=== PATIENT | female | born 1990 | race Caucasian/White ===

== ENCOUNTER 2020-04-24 17:51 | Emergency (ER) | payer OTHER, SELFPAY ==
[2020-04-24 18:17] VITALS: BP 145/75; PULSE 99; RESP 18; TEMP 36.7; O2SAT 99; BMI 25.6
--- NOTE | 2020-04-24 18:28 | ED.FEMALEGU ---
HPI - Female Genitourinary General Chief complaint: Urogenital-Female Stated complaint: BACK PAIN Time Seen by Provider: 04/24/20 18:25 Source: patient Mode of arrival: ambulatory Limitations: no limitations History of Present Illness HPI Narrative: 29-year-old female here with complaints of dysuria, frequency, urgency, suprapubic discomfort and low back pain times 3-4 days. She tells me that she has vaginal discharge but this is unchanged from her normal. She tells me that she has slight vaginal discomfort but no itching, rashes, lesions. No fevers, chills, vomiting or diarrhea. She tells me that she is sexually active with 1 female partner. She does tell me that she had intercourse 1 day prior to when her symptoms began and this was vaginal and anal intercourse with a dildo. She tells me they do not use female condoms or any forms of contraception. She felt like she had a UTI and so yesterday she bought [id number] as though and this did give her some relief in her symptoms. MD elicited complaint: dysuria and back pain Onset (ago): day(s) Severity: mild Quality of pain: cramping Consistency: intermittent Vaginal discharge: white and creamy Vaginal bleeding: none Urinary symptoms: Dysuria, Urgency and Frequency Exacerbating factors: urination Treatment prior to arrival: none Sexual activity: Yes Patient : No Related Data Previous Rx's Medication Instructions Recorded doxycycline monohydrate 100 mg PO BID #14 tab 04/24/20 metronidazole [Flagyl] 500 mg PO Q12H #14 tab 04/24/20 phenazopyridine [Pyridium] 200 mg PO Q8H PRN #6 tab 04/24/20 Allergies Allergy/AdvReac Type Severity Reaction Status Date / Time apple [Apple] Allergy Severe SWELLING Unverified 12/18/19 16:18 cucumber Allergy Severe MOUTH Unverified 12/18/19 16:18 NUMBNESS soy [SOY] Allergy Severe ANAPHYLAXIS Unverified 12/18/19 16:18 lecithin, soy [LECITHIN, SOY] Allergy Unknown ANAPHYLAXIS Unverified 12/18/19 16:18 nut - unspecified [nut] Allergy Unknown RASH/ABDOMINAL Unverified 12/18/19 16:18 PAIN peach [PEACH] Allergy Unknown HIVES Unverified 12/18/19 16:18 raspberry [Raspberry] Allergy Unknown MOUTH Unverified 12/18/19 16:18 ITCHING strawberry [STRAWBERRY] Allergy Unknown ANAPHYLAXSI Unverified 12/18/19 16:18 S tacrolimus [From PROTOPIC] Allergy Unknown HIVES Unverified 12/18/19 16:18 tomato [TOMATO] Allergy Unknown ANAPHYLAXIS Unverified 12/18/19 16:18 environmental Allergy Unknown Uncoded 09/22/19 00:00 seasonal Allergy Unknown Uncoded 09/22/19 00:00 Review of Systems Review of Systems: Yes all other systems are reviewed and are negative Constitutional: Constitutional: Reports no additional constitutional complaints, Denies body ache(s), Denies chills, Denies fever(s), Denies headache(s) and Denies weakness Eyes: Eyes: Reports no additional eye complaints and Denies change in vision ENT: Reports system reviewed and no additional complaints, except as documented, Denies dizziness, Denies headache(s), Denies nasal congestion, Denies nasal discharge and Denies neck pain Cardiovascular: Cardiovascular: Reports no additional cardiovascular complaints, Denies chest pain, Denies leg edema and Denies dyspnea Respiratory: Respiratory: Reports no additional respiratory complaints, Denies cough and Denies dyspnea Gastrointestinal: Gastrointestinal: Reports no additional gastrointestinal complaints, Denies abdominal pain, Denies diarrhea, Denies nausea and Denies vomiting Genitourinary: Genitourinary: Reports no additional female genitourinary complaints, Reports dysuria, Denies urinary incontinence, Reports urinary urgency, Reports vaginal discharge, Denies vaginal odor and Denies vaginal pruritus Comments: +suprapubic pain Musculoskeletal: Musculoskeletal: Reports no additional musculoskeletal complaints, Reports back pain, Denies arthralgias, Denies joint swelling, Denies neck pain, Denies numbness and Denies tingling Integumentary/Breasts: Skin/Breast: Reports system reviewed and no additional complaints, except as docu and Denies rash Neurologic: Reports system reviewed and no additional complaints, except as documented, Denies Abnormal speech present, Denies dizziness, Denies headache(s), Denies numbness, Denies tingling and Denies weakness PMFSH Past Medical History Attestation statement: The following information was validated with the patient. Source: old records reviewed and nursing notes reviewed Medical History Asthma Social History Social History Advance Directives: No Advance Directives Information Provided: No Physical Exam Vital Signs: Vital Signs: Last Vital Signs Temp 98.0 F 04/24/20 18:17 Pulse 87 04/24/20 20:52 Resp 18 04/24/20 20:52 BP 116/78 04/24/20 20:52 Pulse Ox 99 04/24/20 20:52 Body Mass Index 25.6 Const: General: cooperative, healthy appearing, comfortable and no acute distress Orientation/consciousness: patient oriented x3 Limitations: no limitations HENMT: Head: Yes normal to inspection Ears: hearing grossly normal bilaterally General nose exam: Normal external nose present Face and sinus: Yes normal facial exam Mouth: Normal oral and palatal mucosa present Throat: Yes posterior oropharynx normal Eyes: General: appearance normal, both eyes and all related structures Pupils: Equal, round and reactive pupils present Neck: Neck: Yes normal visual inspection Chest: Chest palpation & inspection: normal inspection of the chest Resp: Effort & Inspection: normal respiratory effort Auscultation: clear to auscultation bilaterally Cardio: Rate: regular rate Rhythm: regular rhythm Peripheral pulses: Peripheral pulses 2+ throughout GI: Other: lower suprapubic discomfort Inspection: Yes normal to inspection Palpation (GI): Soft to palpation and nontender Auscultation: normal bowel sounds : 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 General: Yes Bimanual renal exam normal bilaterally External Female Exam: normal external appearance Speculum Exam - Vagina: normal appearance of the vagina and abnormal vaginal discharge (creamy, white, moderate amount ) Speculum Exam - Cervix: normal appearance of the cervix Bimanual exam- vagina & uterus: normal bimanual exam Bimanual Exam- Adnexa, other: normal adnexae and No adnexal tenderness Back/Spine/Pelvis: Thoracic/Lumbar Spine: thoracic and lumbar spine normal to inspection Skin: General skin exam: no rashes or lesions noted Neuro: General: patient oriented x3, no focal motor deficits and normal sensation to monofilament Cranial nerves: Yes Equal, round and reactive pupils present Cognition (Neuro): normal cognition Speech: No Abnormal speech present Gait exam (Neuro): Normal gait present Motor exam (neuro): 5/5 motor strength present throughout Extrem: General: Yes normal to inspection Course Course Course Narrative: 29 yo female here with suprapubic discomfort, low back pain and urinary symptoms x several days s/p sexual intercourse with her partner. UA and ur negative. Pelvic exam shows moderate vaginal discharge with no CMT or adnexal tenderness. Mild suprapubic discomfort with no unilateral pelvic pain. No CVAT. Sent CT NG, trichomonas prep, BV panel. Likely urethritis. Given ceftriaxone 500mg in ED. Pt refused IM and so nursing gave via PIV line. Will send home with flagyl BID, doxycyline BID. Reviewed worrisome signs/symptoms with patient and when to return to ED. comfortable with discharge home. MDM - Female Genitourinary Lab Data Labs: Lab Results 04/24/20 04/24/20 Range/Units 18:47 18:50 Urine Color YELLOW Urine Appearance CLEAR Urine pH 8.0 (5.0-8.0) Ur Specific [place] 1.015 (1.005-1.025) Urine Protein NEG (NEG-TRACE) MG/DL Urine Glucose (UA) NEG (NEG) MG/DL Urine Ketones NEG (NEG) MG/DL Urine Blood NEG (NEG) Urine Nitrite NEG (NEG) Ur Leukocyte Esterase NEG (NEG) Urine Test NEGATIVE (NEGATIVE) Discharge Plan Discharge Clinical Impression: Urethritis Patient Disposition: Home, Self-Care Instructions: Urinary Tract Infection in Women (ED) Additional Instructions: I will call you tomorrow if your results are positive We are treating your for a UTI presumptively No sex until you make sure your tests are negative for STDS Increase fluids Prescriptions: New phenazopyridine [Pyridium] 200 mg tablet 200 mg PO Q8H PRN (Reason: pain) Qty: 6 RF: 0 doxycycline monohydrate 100 mg tablet 100 mg PO BID Qty: 14 RF: 0 metronidazole [Flagyl] 500 mg tablet 500 mg PO Q12H Qty: 14 RF: 0 Referrals: Physician,None [Primary Care Provider] - 2 days Interventions: ED Discharge Assessment Last Done: 04/24/20 20:53 Discharge Date/Time: 04/24/20 20:54
[2020-04-24] MEDS: Ketorolac Tromethamine 60 MG/2 ML VIAL IM (18:43)
[2020-04-24 18:55] LABS: Glucose Urine UA NEG (NEG); Leukocyte Esterase Urine NEG (NEG); Nitrite Urine NEG (NEG); Specific Gravity - Urine 1.015 (1.005-1.025); Urine Blood NEG (NEG); Urine Ketones NEG (NEG); Urine Protein NEG (NEG-TRACE)
[2020-04-24 18:56] LABS: Appearance Urine CLEAR; Color Urine YELLOW
[2020-04-24 18:57] LABS: UPreg QC Valid YES; Urine Pregnancy NEGATIVE (NEGATIVE)
--- NOTE | 2020-04-24 19:26 | PC.NURSE ---
Pelvic exam completed by provider.
[2020-04-24 20:52] VITALS: BP 116/78; PULSE 87; RESP 18; O2SAT 99
[2020-04-25 11:07] LABS: CT PCR NOT DETECTED (Not Detect.); NG PCR NOT DETECTED (Not Detect.)
[2020-04-26 09:22] LABS: BV Int Neg Control Negative (Negative); BV Int Pos Control Positive (Positive)
== END 2020-04-24 20:54 | disposition home or self-care (01) ==
PROVIDERS: Nurse Practitioner Family; Emergency Provider Emergency Medicine Emergency Medical Services
DX: N34.2 Other urethritis (principal); M54.5 Low back pain; R30.0 Dysuria; Z79.899 Other long term (current) drug therapy
CPT/HCPCS: 81003; 81025; 87480; 87491; 87510; 87591; 87660; 96365; 96372; 99284; J0696; J1885

== ENCOUNTER 2020-05-04 12:40 | Outpatient (REF) | payer OTHER, SELFPAY | END 2020-05-04 12:41 | disposition home or self-care (01) | LOC: HO.LAB 12:40 | PROVIDERS: Visit Provider Internal Medicine | DX: Z20.822 Contact with and (suspected) exposure to COVID-19 (principal) | CPT/HCPCS: 36415; C9803; U0003; U0005 ==

== ENCOUNTER → 2020-12-07 08:17 | Outpatient (BNVA) | payer SELFPAY | DX: R76.11 Nonspecific reaction to tuberculin skin test without active tuberculosis (principal) ==

== ENCOUNTER 2023-01-03 17:55 | Outpatient (REF) | payer MEDICAID, SELFPAY ==
[2023-01-03 19:16] LABS: Influenza A PCR NEGATIVE (Negative); Influenza B PCR NEGATIVE (Negative); Resp Syncy Virus RNA Qual PCR NEGATIVE (Negative); SARS COV2 PCR INHOUSE NEGATIVE (Negative)
== END 2023-01-03 17:56 | disposition home or self-care (01) ==
LOC: HO.HHCLNP 17:55
PROVIDERS: Visit Provider Internal Medicine Geriatric Medicine
DX: J45.909 Unspecified asthma, uncomplicated (principal)
CPT/HCPCS: 0241U; 87070

== ENCOUNTER 2023-06-11 08:26 | Emergency (ER) | payer MEDICAID, SELFPAY ==
--- NOTE | ~2023-06-11 | XR_ITS ---
EXAMINATION: XR RIGHT ANKLE XR RIGHT FOOT CLINICAL INFORMATION: Pain after injury. COMPARISON: None available. TECHNIQUE: AP and oblique views of the right ankle. AP, lateral and oblique views of the right foot. FINDINGS: Right ankle: Ankle mortise is maintained. The talar dome is intact. No ankle joint effusion. Right foot: Alignment is anatomic. Joint spaces are maintained. No displaced fracture or dislocation. XR/XR ankle RT min 3V IMPRESSION: No acute abnormality.
--- NOTE | ~2023-06-11 | XR_ITS ---
EXAMINATION: XR RIGHT ANKLE XR RIGHT FOOT CLINICAL INFORMATION: Pain after injury. COMPARISON: None available. TECHNIQUE: AP and oblique views of the right ankle. AP, lateral and oblique views of the right foot. FINDINGS: Right ankle: Ankle mortise is maintained. The talar dome is intact. No ankle joint effusion. Right foot: Alignment is anatomic. Joint spaces are maintained. No displaced fracture or dislocation. XR/XR foot RT min 3V IMPRESSION: No acute abnormality.
[2023-06-11 09:05] VITALS: BP 117/68; PULSE 89; RESP 19; TEMP 36.5; O2SAT 98; BMI 30.1
--- NOTE | 2023-06-11 09:47 | ED.GENADULT ---
HPI - General Adult General Chief complaint: Extremity Injury, Lower Stated complaint: r foot inj Time Seen by Provider: 06/11/23 09:47 Source: patient Mode of arrival: wheelchair Limitations: no limitations History of Present Illness HPI narrative: Patient is a 32 year old assigned female at with no reported medical history presenting to the emergency department today with right sided foot pain. Patient states that on 06/09/2023 she was out and slipped on a dollar bill, inverting her right foot. Patient denies any head strike, loss of consciousness, dizziness, lightheadedness, abdominal pain, nausea, vomiting, fever, chills, blurry vision, double vision, loss of vision, chest pain, difficulty breathing, shortness of breath, back pain, night sweats, pain with urination, increased urinary frequency, increased urinary urgency, blood in her urine or stool, syncope or a near syncopal episode, bowel incontinence, bladder incontinence, bowel retention, bladder retention, or any other complaints at this time. Onset (ago): day(s) (2) Location: right and lower extremity Radiation: non-radiation Severity: mild Severity scale (1-10): 3 Quality: aching and dull Pain Consistency: constant Relieving factors: none Exacerbating factors: none Associated symptoms: denies other symptoms Treatments prior to arrival: none Related Data Previous Rx's Medication Instructions Recorded doxycycline monohydrate 100 mg 100 mg PO BID #14 tabs 04/24/20 tablet metronidazole 500 mg tablet 500 mg PO Q12H #14 tabs 04/24/20 (Flagyl) phenazopyridine 200 mg tablet 200 mg PO Q8H PRN pain 6 doses #6 04/24/20 (Pyridium) tabs Allergies Allergy/AdvReac Type Severity Reaction Status Date / Time apple [Apple] Allergy Severe SWELLING Unverified 12/18/19 16:18 cucumber Allergy Severe MOUTH Unverified 12/18/19 16:18 NUMBNESS soy [SOY] Allergy Severe ANAPHYLAXIS Unverified 12/18/19 16:18 lecithin, soy [LECITHIN, SOY] Allergy Unknown ANAPHYLAXIS Unverified 12/18/19 16:18 nut - unspecified [nut] Allergy Unknown RASH/ABDOMINAL Unverified 12/18/19 16:18 PAIN peach [PEACH] Allergy Unknown HIVES Unverified 12/18/19 16:18 raspberry [Raspberry] Allergy Unknown MOUTH Unverified 12/18/19 16:18 ITCHING strawberry [STRAWBERRY] Allergy Unknown ANAPHYLAXSI Unverified 12/18/19 16:18 S tacrolimus [From PROTOPIC] Allergy Unknown HIVES Unverified 12/18/19 16:18 tomato [TOMATO] Allergy Unknown ANAPHYLAXIS Unverified 12/18/19 16:18 environmental Allergy Unknown Uncoded 09/22/19 00:00 seasonal Allergy Unknown Uncoded 09/22/19 00:00 Review of Systems Constitutional: Constitutional: Reports no additional constitutional complaints, Denies chills, Denies fever(s) and Denies night sweats Eyes: Eyes: Reports no additional eye complaints, Denies blurry vision, Denies change in vision, Denies diplopia, Denies eye discharge, Denies loss of vision and Denies eye pain ENT: Denies dizziness Cardiovascular: Cardiovascular: Reports no additional cardiovascular complaints, Denies chest pain, Denies lightheadedness, Denies Loss of Consciousness and Denies dyspnea Respiratory: Respiratory: Reports no additional respiratory complaints and Denies dyspnea Gastrointestinal: Gastrointestinal: Reports no additional gastrointestinal complaints, Denies abdominal pain, Denies melena, Denies hematochezia, Denies change in bowel habits and Denies change in stool character Genitourinary: Genitourinary: Denies hematuria, Denies urinary frequency, Denies dysuria, Denies urinary incontinence, Denies urinary hesitancy and Denies urinary urgency Musculoskeletal: Musculoskeletal: Reports no additional musculoskeletal complaints, Denies numbness and Denies tingling Comments: right foot pain Neurologic: Denies dizziness, Denies loss of vision, Denies numbness and Denies tingling Psychiatric: Psychiatric: Reports no additional psychiatric complaints Endocrine: Endocrine: Reports no additional endocrine complaints Hematologic/Lymphatic: Hematologic/Lymphatic: Reports no additional hematologic/lymphatic complaints Allergic/Immunologic: Allergic/Immunologic: Reports no additional allergic/immunologic complaints PMFSH Past Medical History Attestation statement: The following information was validated with the patient. Source: old records reviewed and nursing notes reviewed Medical History Asthma Social History Social History Smoked in Last 30 Days: No Use of substances other than those prescribed or required for medical reasons: No Advance Directives: No Advance Directives Information Provided: Yes Patient : No Physical Exam ED Vital Signs: Vital Signs - 24 hr 06/11/23 09:05 06/11/23 10:44 Temperature 97.7 F 97.6 F Pulse Rate 89 69 Respiratory Rate 19 16 Blood Pressure 117/68 136/70 Pulse Oximetry 98 97 Oxygen Delivery Method Room Air Room Air BMI result Body Mass Index 30.1 Const General: cooperative, no acute distress, alert and awake Nutritional Appearance: well nourished Orientation/consciousness: patient oriented x3 Limitations: no limitations HENMT Head: Yes normal to inspection and Yes atraumatic Ears: hearing grossly normal bilaterally and external ears normal General nose exam: Normal external nose present, no nasal discharge noted and no epistaxis Face and sinus: Yes normal facial exam, No abrasion and No laceration Mouth: Normal oral and palatal mucosa present, no drooling and no muffled voice Eyes General: appearance normal, both eyes and all related structures Periorbital: periorbital findings normal Eyelids: Yes eyelids normal Conjunctivae: conjunctivae normal Pupils: Equal, round and reactive pupils present EOM: EOMs intact bilaterally Neck Neck: Yes normal visual inspection, Yes full ROM and Yes no lymphadenopathy Chest Chest palpation & inspection: normal inspection of the chest Resp Effort & Inspection: normal respiratory effort and able to speak in complete sentences GI Inspection: Yes normal to inspection Neuro General: patient oriented x3 and moves all extremities Cranial nerves: Yes Equal, round and reactive pupils present Cognition (Neuro): normal cognition Motor exam (neuro): 5/5 motor strength present throughout Sensory Exam: Normal double simultaneous stimulation for sensation Coordination: [id number] test normal Extrem Other: minimal bruising and swelling to the right lateral foot with point tenderness to palpation General: Yes full ROM and Yes capillary refill normal Psych Appearance: grossly normal Mental Status: mental status grossly normal Affect: normal affect Attitude: cooperative Thought process: Normal thought process present Thought content: Normal thought content present Insight: Good insight present (Psych) Medications Administered Discontinued Medications Generic Name Dose Route Start Last Admin Trade Name Freq PRN Reason Stop Dose Admin Acetaminophen 650 mg 06/11/23 10:54 06/11/23 11:09 Acetaminophen 325 Mg Tablet PO 06/11/23 10:55 650 mg ONCE ONE Administration Procedures Orthopedic Splinting/Casting Injury #1: Side: right Lower Extremity Injury Location: foot Lower Extremity Immobilizer: boot orthosis Other Orthopedic Equipment: crutches Medical Decision Making Medical Decision Making MDM Narrative: Patient is a 32 year old assigned female at with no reported medical history presenting to the emergency department today with right foot pain. Patient's physical exam was as noted in the physical exam portion of this note. Patient's right foot and ankle x-rays showed no acute process. Given the patient's clinical exam with point tenderness, will treat as an occult fracture and have her follow up with orthopedics. I explained my physical exam findings as well as all test results to the patient. I answered all questions asked by the patient. Patient's right foot was placed in a walking boot, without incident. Patient's PMS was intact prior to and after boot placement. Patient was given crutches with crutch instructions. I stressed the importance of the patient taking her medication as prescribed. I stressed the importance of the patient following up with her primary care provider and an orthopedic provider. I stressed the importance of the patient returning to the emergency department immediately if her symptoms were to worsen or if she were to develop any dizziness, shortness of breath, difficulty breathing, chest pain, blurry vision, loss of vision, nausea, vomiting, abdominal pain, fever, chills, back pain, or any other complaints. Patient verbalized agreement and understanding with this treatment plan and discharge. Differential Diagnosis Differential Diagnoses: The differential diagnosis associated with the presentation includes Right foot sprain Right foot strain Right foot fracture Admission/Observation Consideration of admission/observation: Escalation of care including admission/observation considered Patient would have been admitted to the hospital had her work up had any findings where hospital admission was appropriate and her clinical presentation warranted hospital admission. Independent Interpretation I performed an independent interpretation of an: Plain X-Ray Interpretation: My interpretation is in agreement with the radiologist's impression of these imaging studies. EXAMINATION: XR RIGHT ANKLE XR RIGHT FOOT CLINICAL INFORMATION: Pain after injury. COMPARISON: None available. TECHNIQUE: AP and oblique views of the right ankle. AP, lateral and oblique views of the right foot. FINDINGS: Right ankle: Ankle mortise is maintained. The talar dome is intact. No ankle joint effusion. Right foot: Alignment is anatomic. Joint spaces are maintained. No displaced fracture or dislocation. XR/XR foot RT min 3V IMPRESSION: No acute abnormality. Dictated By: Jn Stevenson MD Signed By: Electronically signed by Jn Stevenson MD 06/11/23 2710 Radiology Impression Discussion of test interpretation with radiology: I have reviewed the radiologist's reading. Discharge Plan Discharge Clinical Impression: Foot sprain Patient Disposition: Home, Self-Care Instructions: Foot Sprain (ED) Additional Instructions: Follow up with your primary care provider and an orthopedic provider. Wear the walking boot when ambulating. You may take the boot off for sleep and when stationary. Return to the emergency department immediately if your symptoms worsen or if you develop any dizziness, shortness of breath, difficulty breathing, chest pain, blurry vision, loss of vision, nausea, vomiting, abdominal pain, fever, chills, back pain, or any other complaints. Prescriptions: No Action phenazopyridine [Pyridium] 200 mg tablet 200 mg PO Q8H PRN (Reason: pain) Qty: 6 0RF doxycycline monohydrate 100 mg tablet 100 mg PO BID Qty: 14 0RF metronidazole [Flagyl] 500 mg tablet 500 mg PO Q12H Qty: 14 0RF Referrals: [facility] Family [facility] [Provider Group] (Call to establish and follow up with a primary care provider. If you already have a primary care provider, please follow up with them.) [facility] [Provider Group] (Call to establish and follow up with a primary care provider. If you already have a primary care provider, please follow up with them.) [facility] [Provider Group] (Call to establish and follow up with a primary care provider. If you already have a primary care provider, please follow up with them.) [facility] [Provider Group] (Call to establish and follow up with an orthopedic provider.) Stand Alone Forms: Work/School Release Interventions: ED Discharge Assessment Last Done: 06/11/23 11:12 Discharge Date/Time: 06/11/23 11:13 Print Language: Vietnamese
[2023-06-11 10:44] VITALS: BP 136/70; PULSE 69; RESP 16; TEMP 36.4; O2SAT 97
[2023-06-11] MEDS: Acetaminophen 325 MG TABLET 650 MG PO (11:09)
== END 2023-06-11 11:13 | disposition home or self-care (01) ==
PROVIDERS: Emergency Provider Emergency Medicine
DX: S93.601A Unspecified sprain of right foot, initial encounter (principal); X50.1XXA Overexertion from prolonged static or awkward postures, initial encounter; Y93.9 Activity, unspecified; Y92.9 Unspecified place or not applicable; Y99.9 Unspecified external cause status
CPT/HCPCS: 73610; 73630; 99283; 99284

== ENCOUNTER 2023-06-20 14:26 | Outpatient (AMB) | payer MEDICAID, SELFPAY ==
--- NOTE | 2023-06-20 14:36 | A.OFFVIS_ITS ---
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 Patient reports that she was bare foot when she slipped on a dollar bare twisitng her ankle and heard a crack. She had instant numbness and swelling, states a few hours later her pain presented. Presented to [facility] ED a couple of days later where xrays were taken and placed in a walking boot. Current pain level is 5 out of 10 with occasional numbness. States constant pain at the lateral aspect of ankle/foot and is tender to the touch. Allergies apple [Apple] Allergy (Severe, Unverified 06/20/23 14:51) SWELLING cucumber Allergy (Severe, Unverified 06/20/23 14:51) MOUTH NUMBNESS soy [SOY] Allergy (Severe, Unverified 06/20/23 14:51) ANAPHYLAXIS lecithin, soy [LECITHIN, SOY] Allergy (Unknown, Unverified 06/20/23 14:51) ANAPHYLAXIS nut - unspecified [nut] Allergy (Unknown, Unverified 06/20/23 14:51) RASH/ABDOMINAL PAIN peach [PEACH] Allergy (Unknown, Unverified 06/20/23 14:51) HIVES raspberry [Raspberry] Allergy (Unknown, Unverified 06/20/23 14:51) MOUTH ITCHING strawberry [STRAWBERRY] Allergy (Unknown, Unverified 06/20/23 14:51) ANAPHYLAXSIS tacrolimus [From PROTOPIC] Allergy (Unknown, Unverified 06/20/23 14:51) HIVES tomato [TOMATO] Allergy (Unknown, Unverified 06/20/23 14:51) ANAPHYLAXIS environmental Allergy (Unknown, Uncoded 06/20/23 14:51) Unknown seasonal Allergy (Unknown, Uncoded 06/20/23 14:51) Unknown HPI 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 She states at the time of the incident she heard a crack in the foot. She reports she had instant numbness and swelling and was seen at ED about 2 days later where x-rays were performed and she was placed in a walking boot. She currently states she has constant pain along the lateral aspect of his ankle which is tender to touch. She rates the pain as 5 on the scale of 0-10. 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 Review of Systems Const All systems reviewed & are unremarkable except as noted in HPI and below Physical Exam Vital Signs: BMI result Body Mass Index 30.0 Const General: cooperative, healthy appearing, comfortable, no acute distress, well developed and alert Orientation/consciousness: patient oriented x3 HEENT Head: Yes normal to inspection, Yes normocephalic and Yes atraumatic Eyes General: appearance normal, both eyes and all related structures Resp Effort & Inspection: normal respiratory effort and able to speak in complete sentences Cardio Rate: regular rate Peripheral pulses: Peripheral pulses 2+ throughout GI Palpation (GI): Soft to palpation Skin Lesions: no lesions Rashes: no rashes Neuro General: patient oriented x3 Extrem Other: Right foot: Normal to inspection. She has mild tenderness over the lateral aspect of foot with some associated swelling and bruising. NVI. Office Procedures Fracture Care Fracture Billing Code: Fracture Billing Code Results Reviewed Results Reviewed: xrays of the right foot obtained on 06/11/23 show a possible avulsion fragment along the cuboid bone Assessment & Plan Assessment & Plan (1) Cuboid fracture: Code(s): S92.213A - Displaced fracture of cuboid bone of unspecified foot, initial encounter for closed fracture Qualifiers: Encounter type: initial encounter Fracture type: closed Fracture alignment: displaced Laterality: right Qualified Code(s): S92.211A - Displaced fracture of cuboid bone of right foot, initial encounter for closed fracture Plan She will continue wearing her boot weight bearing as tolerated. She can remove the boot for hygiene and exercises. She will begin a course of physical therapy to work on gentle motion and ween out from the boot in 2-3 weeks as symptoms allow. She will follow-up as needed. Orders: Orders PT Evaluation and Treatment Today S92.253A - Displaced fracture of navicular [scaphoid] of unspecified foot, initial encounter for closed fracture Medications: New ibuprofen 800 mg PO Q8H 30 days PRN 90 tabs 3RF pain Patient Instructions: Scribed for Vanessa Bonilla PA-C, by Kirill Gutierrez medical affairs specialist, on 06/20/2023 at 2:30 PM EST. I, Vanessa Bonilla PA-C, have personally reviewed and agree with the information entered by the scribe. Coding Level of Care Code New Pt Level 3 (27082) Diagnoses Closed displaced fracture of cuboid of right foot, initial encounter S92.211A Encounter type: initial encounter Fracture type: closed Fracture alignment: displaced Laterality: right CPT Codes Fracture Care - Fracture Billing Code: Fracture Billing Code ([id number])
== END 2023-06-20 15:56 | disposition home or self-care (01) ==
PROVIDERS: Visit Provider Physician Assistant
DX: S92.211A Displaced fracture of cuboid bone of right foot, initial encounter for closed fracture (principal)
CPT/HCPCS: 99203

== ENCOUNTER → 2023-06-20 14:26 | Outpatient (BNVA) | payer MEDICAID, SELFPAY | PROVIDERS: Visit Provider Physician Assistant | DX: S92.211A Displaced fracture of cuboid bone of right foot, initial encounter for closed fracture (principal); X50.1XXA Overexertion from prolonged static or awkward postures, initial encounter; Y93.89 Activity, other specified; Y92.9 Unspecified place or not applicable; Y99.9 Unspecified external cause status | CPT/HCPCS: 99212 ==

== ENCOUNTER 2023-07-26 08:00 | Outpatient (RCR) | payer MEDICAID, SELFPAY ==
--- NOTE | 2023-07-05 10:58 | MHC.PT.EP ---
[facility] [place] [facility] [place] Office [place] Office [address] [place] [address] [phone] F: [phone] F: [phone] F: [phone] F: [phone] Physical Therapy Plan of Care Date of Evaluation: 07/05/23 Date of Surgery: Diagnosis: displaced fx of navicular (scaphoid) of unspecified foot, initial encounter for closed fx gentle ROM, strength Assessment: 32 y/o female referred to PT with displaced fx of navicular (scaphoid) of unspecified foot, initial encounter for closed fx, gentle ROM, strength. On 06/09/23, she was dancing at a club and while coming off the stage, she slipped on a dollar bill inverting her R ankle. She had instant swelling and zinging; foot felt disconnected. She went to the ED two days later and was given a walking boot WBAT and told she most likely had a Lis Franc fx. 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 Examination shows decreased R ankle AROM, decreased gastroc length B, decreased LE strength, and impaired gait pattern. Recommend PT 2x/week for 5 weeks to address impairments, implement HEP, and optimize functional mobility. Frequency and Duration: The patient will be seen 2x/week for 5 weeks Short Term Goals: 3 weeks I with HEP Production Intern Goals: 5 weeks I with HEP and self managmenet of sx Pt will be able to ambulate > 25 minutes with pain < 3/10 Pt will be able to ascend/ descend stairs with pain < 3/10 Treatment Plan: Modalities to reduce pain, spasms and effusion. Manual therapy to restore motion and function. Therapeutic exercise to improve strength and flexibility. Neuromuscular re-education for posture and balance. Therapeutic activities to return to functional activities of daily living. Electronically signed by: Please sign and return to therapist. Thank you for your referral.
--- NOTE | 2023-08-07 13:17 | MHC.PT.DC ---
[facility] [place] Office [place] Office [place] Office [address] [place] [address] [phone] F: [phone] F: [phone] F: [phone] F: [phone] Physical Therapy Discharge Report Diagnosis: displaced fx of navicular (scaphoid) of unspecified foot, initial encounter for closed fx gentle ROM, strength Date of Surgery: Date of Evaluation: 07/05/23 Date of Discharge: 08/07/23 Treatments to Date: 5 Cancellations to Date: 2 No Shows to Date: 3 Discharge Status: Visit Non-compliance Discharge Summary: Pt d/c for noncompliance with scheduling policy. Electronically signed by: Shy Gomes PT Please sign and return to therapist. Thank you for your referral.
== END 2023-08-07 13:17 | disposition home or self-care (01) ==
LOC: HO.PT 08:00
PROVIDERS: PCP Nurse Practitioner Family; Visit Provider Physician Assistant
DX: S92.251D Displaced fracture of navicular [scaphoid] of right foot, subsequent encounter for fracture with routine healing (principal)
CPT/HCPCS: 97110; 97140; 97161; 97530

== ENCOUNTER 2023-07-30 13:14 | Outpatient (REF) | payer MEDICAID, SELFPAY ==
[2023-07-30 16:37] LABS: Estimated Average Glucose 108 mg/dL; Hemoglobin A1c % 5.4 % (<6.0)
[2023-07-30 17:06] LABS: Alanine Aminotransferase 18 U/L (0-31); Albumin Level 4.3 g/dL (3.5-5.0); Alkaline Phosphatase 90 U/L (39-117); Anion Gap 12 (12-20); Aspartate Amino Transferase 17 U/L (5-31); Bilirubin Total 0.2 mg/dL (0.0-1.0); Blood Urea Nitrogen 14 mg/dL (9-16); Calcium 9.6 mg/dL (8.4-10.2); Carbon Dioxide 26 mmol/L (22-29); Chloride 103 mmol/L (96-108); Estimated Glomerular Filt Rate > 60; Glucose Random 98 mg/dL (60-115); Sodium 137 mmol/L (135-145); Total Protein 7.5 g/dL (6.5-8.0)
== END 2023-07-30 13:15 | disposition home or self-care (01) ==
LOC: HO.HHCL 13:14
PROVIDERS: Visit Provider Nurse Practitioner Family
DX: F43.23 Adjustment disorder with mixed anxiety and depressed mood (principal); Z83.3 Family history of diabetes mellitus
CPT/HCPCS: 36415; 80053; 83036

== ENCOUNTER 2024-05-06 20:06 | Emergency (ER) | payer MEDICAID, SELFPAY ==
--- NOTE | ~2024-05-06 | XR_ITS ---
CLINICAL HISTORY: cough, fever 2 view chest x-ray Comparison: Chest x-ray from 07/16/2019 Findings: No consolidation or effusion. Borderline low lung volumes. No pneumothorax. Cardiac silhouette and mediastinal contours are within limits of normal. No acute fracture. IMPRESSION: No consolidation. This document has been electronically signed by: Rios Rodriges MD on 05/06/2024 21:39:44
[2024-05-06 20:32] VITALS: BP 130/88; PULSE 104; RESP 24; TEMP 38; O2SAT 98; BMI 29.3
--- NOTE | 2024-05-06 20:36 | ED.GENADULT ---
HPI - General Adult General Chief complaint: General Medical Stated complaint: Fever/Vomiting Time Seen by Provider: 05/07/24 00:15 Source: patient, RN notes reviewed and old records reviewed Mode of arrival: ambulatory Limitations: no limitations History of Present Illness ED Provider: Jean Claude SALAZAR narrative: 33-year-old female presents for evaluation of flu-like symptoms pain She reports cough, congestion and shortness of breath for the last 3 days. She had associated fevers and chills as well as nausea and vomiting. Head denies any sick contacts pain She is diagnosed with asthma Related Data Home Medications ?Medication ?Instructions ?Recorded ?Confirmed albuterol sulfate 90 mcg/actuation 2 puff inhalation Q6H PRN wheezing 06/20/23 aerosol inhaler (Ventolin HFA) mometasone 100 mcg/actuation HFA 2 puff inhalation BID 06/20/23 aerosol inhaler (Asmanex HFA) montelukast 10 mg tablet 10 mg PO QAM 06/20/23 triamcinolone acetonide 0.1 % topical BID 06/20/23 topical ointment Previous Rx's ?Medication ?Instructions ?Recorded doxycycline monohydrate 100 mg 100 mg PO BID #14 tabs 04/24/20 tablet metronidazole 500 mg tablet 500 mg PO Q12H #14 tabs 04/24/20 (Flagyl) phenazopyridine 200 mg tablet 200 mg PO Q8H PRN pain 6 doses #6 04/24/20 (Pyridium) tabs ibuprofen 800 mg tablet 800 mg PO Q8H PRN pain 30 days #90 06/20/23 tabs prednisone 20 mg tablet 40 mg (2 x 20 mg) PO DAILY #10 tabs 05/07/24 Allergies Allergy/AdvReac Type Severity Reaction Status Date / Time apple [Apple] Allergy Severe SWELLING Verified 05/06/24 20:35 cucumber Allergy Severe MOUTH Verified 05/06/24 20:35 NUMBNESS soy [SOY] Allergy Severe ANAPHYLAXIS Verified 05/06/24 20:35 lecithin, soy [LECITHIN, SOY] Allergy Unknown ANAPHYLAXIS Verified 05/06/24 20:35 nut - unspecified [nut] Allergy Unknown RASH/ABDOMINAL Verified 05/06/24 20:35 PAIN peach [PEACH] Allergy Unknown HIVES Verified 05/06/24 20:35 raspberry [Raspberry] Allergy Unknown MOUTH Verified 05/06/24 20:35 ITCHING strawberry [STRAWBERRY] Allergy Unknown ANAPHYLAXSI Verified 05/06/24 20:35 S tacrolimus [From PROTOPIC] Allergy Unknown HIVES Verified 05/06/24 20:35 tomato [TOMATO] Allergy Unknown ANAPHYLAXIS Verified 05/06/24 20:35 environmental Allergy Unknown Unknown Uncoded 06/20/23 14:51 seasonal Allergy Unknown Unknown Uncoded 06/20/23 14:51 Review of Systems Constitutional: Constitutional: Reports body ache(s), Reports chills, Reports fever(s) and Reports headache(s) Eyes: Eyes: Denies photophobia ENT: Reports headache(s) and Denies sore throat Cardiovascular: Cardiovascular: Denies chest pain and Reports dyspnea Respiratory: Respiratory: Reports cough, Reports dyspnea and Reports wheezing Gastrointestinal: Gastrointestinal: Denies abdominal pain, Reports diarrhea, Reports nausea and Reports vomiting Musculoskeletal: Musculoskeletal: Denies back pain Integumentary/Breasts: Skin/Breast: Denies rash Neurologic: Reports headache(s) Allergic/Immunologic: Allergic/Immunologic: Reports wheezing PMFSH Past Medical History Medical History (Updated 05/07/24 @ 00:46 by Juan Silverio) Asthma Surgical History (Updated 06/20/23 @ 14:43 by LILIAN Rodriguez) History of tonsillectomy and adenoidectomy Social History Social History (Updated 06/20/23 @ 14:44 by LILIAN Rodriguez) Patient Tobacco Use Status: Never used Tobacco Advance Directives: No Advance Directives Information Provided: No Current occupational status: employed 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, 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 Physical Exam ED Vital Signs: Vital Signs - 24 hr 05/06/24 20:32 05/07/24 01:31 Temperature 100.4 F 100.4 F Pulse Rate 104 H 104 H Respiratory Rate 24 H 24 H Blood Pressure 130/88 130/88 Pulse Oximetry 98 98 Oxygen Delivery Method Room Air Room Air BMI result Body Mass Index 29.3 Const General: healthy appearing, comfortable, no acute distress, alert and awake Nutritional Appearance: well nourished Orientation/consciousness: patient oriented x3 HENMT Head: Yes normocephalic and Yes atraumatic Eyes Eyelids: Yes eyelids normal Conjunctivae: conjunctivae normal Sclerae: sclerae normal Corneas: corneas normal Pupils: Equal, round and reactive pupils present EOM: EOMs intact bilaterally Direct Ophthalmoscopy: No photophobia Neck Neck: Yes full ROM Resp Other: Faint expiratory wheezing in the bilateral bases Effort & Inspection: normal respiratory effort, able to speak in complete sentences and not labored GI Inspection: No distended Palpation (GI): Soft to palpation, not firm, nontender, no guarding and not rigid Skin General skin exam: elasticity normal Neuro General: patient oriented x3 Cranial nerves: Yes Equal, round and reactive pupils present and Yes Bilaterally intact EOM present Cognition (Neuro): normal cognition Extrem Other: Moving all extremities well without any obvious deformities Course Course Course Narrative: This is a Rapid Medical Examination (RME) performed by Carlos Bowie PA-C in triage. Full HPI, ROS, assessment and treatment plan per primary provider in the Main ED. 33 yo female hx asthma here w/ cough, congestion, dyspnea, N/V/D, fever, chills x3 days. +audible wheezes Plan: labs, viral/strep swabs, cxr, ed bronch protocol Medications Administered Discontinued Medications Generic Name Dose Route Start Last Admin Trade Name Freq PRN Reason Stop Dose Admin Albuterol/Ipratropium 3 ml 05/07/24 01:16 05/07/24 01:17 Albuterol/Iprat 2.5/0.5mg 3 Ml Ampul.Neb INHALE 05/07/24 01:17 3 ml ONCE ONE Administration Ibuprofen 600 mg 05/06/24 20:37 05/06/24 20:39 Ibuprofen 600 Mg Tablet PO 05/06/24 20:38 600 mg ONCE ONE Administration Medical Decision Making Medical Decision Making [facility] Narrative: 33-year-old female presents for evaluation of flu-like symptoms, she did test positive for influenza. She was outside the window for Tamiflu treatment. Her vital signs are stable but she is wheezy on exam. A DuoNeb was ordered. I did prescribe her prednisone. If she feels that she is improving she was not into start the prednisone however it does since she was a mild asthma exacerbation related to the influenza. Chest x-ray does not show any evidence of pneumonia. Labs are significant for a mild leukopenia which is likely consistent with viral syndrome. No significant chemistry abnormalities. The patient is not Differential Diagnosis Differential Diagnoses: The differential diagnosis associated with the presentation includes Asthma exacerbation Influenza Upper respiratory infection Pneumonia Lab Data [facility] Lab Attestation statement: I reviewed the patient's lab results. As above 05/06/24 21:20 05/06/24 21:20 Labs: Lab Results 05/06/24 Range/Units 21:20 WBC 3.0 L (4.8-10.8) X10*3/uL RBC 4.76 (4.20-5.50) X10*6/uL Hgb 13.3 (12.0-16.0) g/dl Hct 40.1 (37.0-47.0) % MCV 84.2 (80.0-98.0) fL MCH 27.9 (27.0-33.0) pg MCHC 33.2 (31.0-35.0) g/dl RDW 11.6 (11.0-16.0) % Plt Count 217 (160-400) X10*3/uL MPV 10.4 (9.4-12.3) fL Immature Gran % (Auto) 0.7 H (0.0-0.4) % Neut % (Auto) 55.2 (45-73) % Lymph % (Auto) 29.0 (20-40) % [place] % (Auto) 11.7 H (2-11) % Eos % (Auto) 2.7 (0-4) % Baso % (Auto) 0.7 (0-2) % Lymph # (Auto) 0.9 L (1.2-4.9) X10*3/uL [place] # (Auto) 0.4 (0.1-1.2) X10*3/uL Eos # (Auto) 0.1 (0.0-0.4) X10*3/uL Baso # (Auto) 0.0 (0.0-0.2) X10*3/uL Abs Immat Gran (auto) 0.02 (0.00-0.03) X10*3/uL Absolute Neuts (auto) 1.7 L (2.0-8.3) x10*3/uL Absolute Nucleated RBC 0.000 (0.0-0.012) X10*3/uL Nucleated RBC % (auto) 0.0 (0.0-0.2) /100WBC Sodium 141 (135-145) mmol/L Potassium 3.9 (3.3-5.1) mmol/L Chloride 101 (96-108) mmol/L Carbon Dioxide 26 (22-29) mmol/L Anion Gap 18 (12-20) BUN 9 (9-16) mg/dL Creatinine 0.97 (0.5-1.4) mg/dL Estim Creat Clear Calc 78.4 Estimated GFR > 60 Random Glucose 93 (60-115) mg/dL Calcium 9.0 D (8.4-10.2) mg/dL Magnesium 2.1 (1.6-2.6) mg/dL Total Bilirubin 0.2 (0.0-1.0) mg/dL AST 27 (5-31) U/L ALT 27 (0-31) U/L Alkaline Phosphatase 86 (39-117) U/L Total Protein 7.7 (6.5-8.0) g/dL Albumin 4.2 (3.5-5.0) g/dL Lipase 22 (8-78) U/L Beta HCG, Quant < 2 mIU/mL Influenza Type A (PCR) POSITIVE A (Negative) Influenza Type B (PCR) NEGATIVE (Negative) RSV RNA Qual (PCR) NEGATIVE (Negative) SARS-CoV-2 RNA (RT-PCR) NEGATIVE (Negative) S. pyogenes GrpA JULIO Negative (Negative) Radiology Impression Discussion of test interpretation with radiology: I have reviewed the radiologist's reading. Radiologist Impression: Findings: No consolidation or effusion. Borderline low lung volumes. No pneumothorax. Cardiac silhouette and mediastinal contours are within limits of normal. No acute fracture. IMPRESSION: No consolidation. This document has been electronically signed by: Rios Rodriges MD on 05/06/2024 21:39:44 Discharge Plan Discharge Clinical Impression: Influenza A, Asthma exacerbation Patient Disposition: Home, Self-Care Instructions: Asthma (ED), Influenza (ED) Additional Instructions: You tested positive for the flu. Your chest x-ray was clear, no evidence of pneumonia Your labs did not show any concerning abnormalities. The flu is likely triggering an asthma exacerbation. Use your inhalers as needed. You may start prednisone 40 mg daily for the next 5 days Follow-up with your primary doctor, return for new or worsening symptoms Prescriptions: New prednisone 20 mg tablet 40 mg PO DAILY Qty: 10 0RF No Action phenazopyridine [Pyridium] 200 mg tablet 200 mg PO Q8H PRN (Reason: pain) Qty: 6 0RF doxycycline monohydrate 100 mg tablet 100 mg PO BID Qty: 14 0RF metronidazole [Flagyl] 500 mg tablet 500 mg PO Q12H Qty: 14 0RF albuterol sulfate [Ventolin HFA] 90 mcg/actuation HFA aerosol inhaler 2 puff inhalation Q6H PRN (Reason: wheezing) Asmanex HFA 100 mcg/actuation HFA aerosol inhaler 2 puff inhalation BID montelukast 10 mg tablet 10 mg PO QAM triamcinolone acetonide 0.1 % ointment topical BID ibuprofen 800 mg tablet 800 mg PO Q8H PRN (Reason: pain) 30 Days Qty: 90 3RF Interventions: ED Discharge Assessment Last Done: 05/07/24 01:31 Discharge Date/Time: 05/07/24 01:37 Print Language: Lao
[2024-05-06] MEDS: Ibuprofen 600 MG TABLET PO (20:39)
--- OUTSIDE RECORDS SUMMARY | 2024-05-06 21:24 | XMS_ITS | Encounter Summary ---
Author Organization [facility] Address [address] [place] [id number] Care Team Providers Care Heel Seat Trimmer Name Role Phone Radha Sanchez Primary Care Provider [phone] Ayesha Ramachandran NP Primary Care Provider [phone] Encounter Details Date Type Department Care Team (Late st Contact Info) Description 04/10/2023 Orders Only [facility] [address] [place] [address] Radha Sanchez FNP [address] [place] [address] Irregular menses (Primary Dx) Social History Tobacco Use Types Packs/Day Years Used Date Smoking Tobacco: Never Smokeless Tobacco: Never Comments Unknown Sex and Gender Information Value Date Recorded Sex Assigned at Female 01/30/2022 10:22 AM EDT Legal Sex Female 10:22 AM EDT Gender Identity Female 01/30/2022 10:22 AM EDT Sexual Orientation Choose not to disclose 2021 10:22 AM EDT documented as of this encounter Plan of Treatment Upcoming Encounters Date Type Department Care Team (Late st Contact Info) Description 06/04/2024 10:00 AM EST Office Visit [facility] [address] [place] [address] Ayesha Ramachandran NP [address] [place] [address] documented as of this encounter Visit Diagnoses Diagnosis Irregular menses- Primary Irregular menstrual cycle documented in this encounter Care Teams Heel Seat Trimmer Relationship Specialty Start Date End Date Radha Sanchez FNP [address] [place] [address] PCP - General Family Medicine 12/08/22 12/03/23 Ayesha Ramachandran NP [address] [place] [address] PCP - General Family Medicine 12/04/23 documented as of this encounter
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
--- OUTSIDE RECORDS SUMMARY | 2024-05-06 21:24 | XMS_ITS | Encounter Summary ---
Author Organization [employer] Address [address] [place] [address] [address] [place] [address] Care Team Providers Care Med Care Manager Name Role Phone Radha SanchezP Primary Care Provider [phone] Ayesha Ramachandran NP Primary Care Provider [phone] Encounter Details Date Type Department Care Team ([facility] st Contact Info) Description 12/14/2022 Telephone [facility] [address] [place], [place] [phone] Radha Sanchez FNP [address] [place] [address] Social History Tobacco Use Types Packs/Day Years Used Date Smoking Tobacco: Never Assessed Comments Unknown Sex and Gender Information Value Date Recorded Sex Assigned at Female 01/30/2022 10:22 AM EDT Legal Sex Female 10:22 AM EDT Gender Identity Female 01/30/2022 10:22 AM EDT Sexual Orientation Choose not to disclose 2021 10:22 AM EDT documented as of this encounter Miscellaneous Notes * Telephone Encounter - Radha Ventura RN - 12/19/2022 11:28 AM EDT T/C to pt. For below message , No answer. LVM to call back on [phone]. * Telephone Encounter - Almita Mcgowan - 12/14/2022 8:43 AM EDT Tc from pt requesting to get a sleep studies done . documented in this encounter Plan of Treatment Upcoming Encounters Date Type Department Care Team (Late st Contact Info) Description 06/04/2024 10:00 AM EST Office Visit [facility] [address] [place] [address] Ayesha Ramachandran NP [address] [place], [place] [phone] documented as of this encounter Visit Diagnoses Not on filedocumented in this encounter Care Teams Med Care Manager Relationship Specialty Start Date End Date Radha Sanchez FNP [address] [place] [address] PCP - General Family Medicine 12/08/22 12/03/23 Ayesha Ramachandran NP [address] [place] [address] PCP - General Family Medicine 12/04/23 documented as of this encounter
--- OUTSIDE RECORDS SUMMARY | 2024-05-06 21:24 | XMS_ITS | Encounter Summary ---
Author Organization [employer] Address [address] [place] [address] [address] [place] [address] Care Team Providers Care Hot Box Operator Name Role Phone Ayesha Ramachandran SHAUN Primary Care Provider [phone] Encounter Details Date Type Department Care Team (Late st Contact Info) Description 04/25/2024 Orders Only [facility] [address] [place] [address] ProviderPierce MD Social History Tobacco Use Types Packs/Day Years Used Date Smoking Tobacco: Never Smokeless Tobacco: Never Alcohol Use Standard Drinks/Week Comments Yes 0 (1 standard drink = 0.6 oz pur e alcohol) occsionally Depression Answer Date Recorded Patient Health Questionnaire-9 Score 7 07/30/2023 Patient Health Questionnaire-9 Score 7 07/30/2023 Last PHQ-9: Questionnaire Data Not on file 0 07/30/2023 Housing Stability Answer Date Recorded What is your housing situation today? I have artimaciej singletary 07/30/[address] you [...] Description 06/04/2024 10:00 AM EST Office Visit [facility] [address] [place] [address] Ayesha Ramachandran NP [address] [place] [address] documented as of this encounter Procedures Procedure Name Priority Date/Time Associated Diagnosis Comments HM PAP/HPV Routine 08/21/2023 3:13 PM EDT documented in this encounter Results * HM PAP/HPV (08/21/2023 3:13 PM EDT) us Historical Provider HEALTH MAINTENANCE Final Result [facility] [address] [place], [place] [phone] documented in this encounter Visit Diagnoses Not on filedocumented in this encounter Additional Health Concerns Assessment Noted Time PHQ-9 Depression Total Score: 7 07/30/19 24 11:56 AM EDT documented as of this encounter Care Teams Hot Box Operator Relationship Specialty Start Date End Date Ayesha Ramachandran NP [address] [place] [address] PCP - General Family Medicine 12/04/23 documented as of this encounter
[2024-05-06 21:42] LABS: MANUAL DIFF FLAG NO
[2024-05-06 21:45] LABS: Basophils Percent Auto 0.7 % (0-2); Eosinophils Absolute Auto 0.1 X10*3/uL (0.0-0.4); Eosinophils Percent Auto 2.7 % (0-4); Hematocrit 40.1 % (37.0-47.0); Hemoglobin 13.3 g/dl (12.0-16.0); Imm Gran Abs Auto 0.02 X10*3/uL (0.00-0.03); Imm Gran Pct Auto 0.7 % (0.0-0.4); Lymphocytes Absolute Auto 0.9 X10*3/uL (1.2-4.9); Mean Corpuscular HGB Conc 33.2 g/dl (31.0-35.0); Mean Corpuscular Hemoglobin 27.9 pg (27.0-33.0); Mean Corpuscular Volume 84.2 fL (80.0-98.0); Mean Platelet Volume 10.4 fL (9.4-12.3); Monocytes Absolute Auto 0.4 X10*3/uL (0.1-1.2); Monocytes Percent Auto 11.7 % (2-11); Neutrophils Absolute Auto 1.7 x10*3/uL (2.0-8.3); Neutrophils Percent Auto 55.2 % (45-73); Platelet Count 217 X10*3/uL (160-400); Red Blood Count 4.76 X10*6/uL (4.20-5.50); Red Cell Distribution Width 11.6 % (11.0-16.0)
[2024-05-06 21:56] LABS: IDNOW Serial# 6674DD1D; Strep A Nucleic Acid Negative (Negative)
[2024-05-06 22:05] LABS: Alanine Aminotransferase 27 U/L (0-31); Albumin Level 4.2 g/dL (3.5-5.0); Alkaline Phosphatase 86 U/L (39-117); Anion Gap 18 (12-20); Aspartate Amino Transferase 27 U/L (5-31); Bilirubin Total 0.2 mg/dL (0.0-1.0); Blood Urea Nitrogen 9 mg/dL (9-16); Carbon Dioxide 26 mmol/L (22-29); Chloride 101 mmol/L (96-108); Creatinine Clr Calc Pharmacy 78.4; Estimated Glomerular Filt Rate > 60; Glucose Random 93 mg/dL (60-115); HCG Quantitative < 2 mIU/mL; Lipase 22 U/L (8-78); Magnesium 2.1 mg/dL (1.6-2.6); Potassium 3.9 mmol/L (3.3-5.1); Sodium 141 mmol/L (135-145); Total Protein 7.7 g/dL (6.5-8.0)
[2024-05-06 22:20] LABS: Influenza A PCR POSITIVE (Negative); Influenza B PCR NEGATIVE (Negative); Resp Syncy Virus RNA Qual PCR NEGATIVE (Negative); SARS COV2 PCR INHOUSE NEGATIVE (Negative)
[2024-05-07] MEDS: Albuterol/Iprat 2.5/0.5MG 3 ML AMPUL.NEB INHALE (01:17)
[2024-05-07 01:31] VITALS: BP 130/88; PULSE 104; RESP 24; TEMP 38; O2SAT 98
== END 2024-05-07 01:37 | disposition home or self-care (01) ==
PROVIDERS: Physician Assistant Medical; Emergency Provider Emergency Medicine; PCP Nurse Practitioner Family
DX: J10.1 Influenza due to other identified influenza virus with other respiratory manifestations (principal); J45.901 Unspecified asthma with (acute) exacerbation; R50.9 Fever, unspecified; R11.2 Nausea with vomiting, unspecified; R05.9 Cough, unspecified; R06.02 Shortness of breath; Z79.899 Other long term (current) drug therapy; Z03.818 Encounter for observation for suspected exposure to other biological agents ruled out
CPT/HCPCS: 0241U; 71046; 80053; 83690; 83735; 84702; 85025; 87651; 99283; 99284

== ENCOUNTER → 2024-05-06 20:35 | Outpatient (BNV) | payer MEDICAID, SELFPAY | PROVIDERS: PCP Nurse Practitioner Family; Visit Provider Radiology Neuroradiology | DX: R05.9 Cough, unspecified (principal); R50.9 Fever, unspecified | CPT/HCPCS: 71046 ==

== ENCOUNTER 2024-07-23 09:48 | Outpatient (REF) | payer MEDICAID, SELFPAY ==
--- OUTSIDE RECORDS SUMMARY | 2024-07-23 11:03 | XMS_ITS | Encounter Summary ---
Author Organization [employer] Address [address] [place] [address] [address] [address] Care Team Providers Care Fryer Operator Name Role Phone Ayesha Ramachnadran NP Primary Care Provider [phone] Reason for Visit * Reason Onset Date Comments Appointment Request 06/04/2024 Encounter Details Date Type Department Care Team ([facility] st Contact Info) Description 06/04/2024 Telephone [facility] [address] [place], [place] [phone] Ayesha Ramachandran NP [address] [place] [address] Appointment Request Social History Tobacco Use Types Packs/Day Years [...] encounter Miscellaneous Notes * Telephone Encounter - Jie Reed - 06/04/2024 12:17 PM EST Tc from pt requesting reschedule Transfer PT appt. with Madie. documented in this encounter Plan of Treatment Upcoming Encounters Date Type Department Care Team (Late st Contact Info) Description 09/01/2024 10:30 AM EDT Office Visit [facility] [address] [place] [address] Ayesha Ramachandran NP [address] [place] [address] documented as of this encounter Visit Diagnoses Not on filedocumented in this encounter Additional Health Concerns Assessment Noted Time PHQ-9 Depression Total Score: 7 07/30/19 24 11:56 AM EDT documented as of this encounter Care Teams Fryer Operator Relationship Specialty Start Date End Date Ayesha Ramachandran NP [address] [place] [address] PCP - General Family Medicine 12/04/23 documented as of this encounter
--- OUTSIDE RECORDS SUMMARY | 2024-07-23 11:03 | XMS_ITS | Encounter Summary ---
Author Organization [employer] Address [address] [place] [address] [address] [place] [address] Care Team Providers Care Take Out Waiter Name Role Phone Ayesha Ramachandran SHAUN Primary Care Provider [phone] Encounter Details Date Type Department Care Team (Latest Contact Info) Description 07/23/2024 Travel Social History Tobacco Use Types Packs/Day Years [...] Description 09/01/2024 10:30 AM EDT Office Visit [facility] [address] [place] [address] Ayesha Ramachandran NP [address] [place] [address] documented as of this encounter Visit Diagnoses Not on filedocumented in this encounter Additional Health Concerns Assessment Noted Time PHQ-9 Depression Total Score: 7 07/30/19 24 11:56 AM EDT documented as of this encounter Care Teams Take Out Waiter Relationship Specialty Start Date End Date Ayesha Ramachandran NP [address] [place] [address] PCP - General Family Medicine 12/04/23 documented as of this encounter
--- OUTSIDE RECORDS SUMMARY | 2024-07-23 11:03 | XMS_ITS | Clinical Summary ---
Author Organization [employer] Address [address] [place] [address] 7 [place] [address] Care Team Providers Care Wildlife And Game Protector Name Role Phone Ayesha Ramachandran SHAUN Primary Care Provider [phone] Allergies Active Allergy Reactions Criticality Noted Date Comments Apple Juice 06/02/2016 Glucose 06/12/2023 Lecithin 06/02/2016 Mangifera Indica 06/02/2016 Henderson (Diagnostic) 06/02/2016 Other 06/02/2016 Peanut-Containing Drug Products Hives 05/31 Prunus Persica 06/12/2023 Raspberry 06/02/2016 Soybean-Containing Drug Products Tacrolimus 09/15/2016 Tomato 06/02/2016 Medications * This document contains information received from the source organization and may not represent a complete record from that organization. montelukast (Singulair) 10 MG tabletIndicatio ns:Moderate persistent asthma with acute exacerbation Take 1 tablet (10 mg) by mouth in the morning. 30 tablet 5 05/16/19 24 Active triamcinolone (Kenalog) 0.1 % ointmentIndicat ions:Eczema, allergic Apply topically 2 times daily. 80 g 2 05/16/19 24 Active albuterol (2.5 MG/3ML) 0.083% nebulizer solutionIndicat ions:Moderate persistent asthma with acute exacerbation Take 3 mL (2.5 mg) by nebulization every 6 (six) hours if needed for wheezing. 75 mL 1 05/16/19 24 Active sertraline (Zoloft) 50 MG tablet Take 1 tablet (50 mg) by mouth Once per day. 30 tablet 07/30/19 24 Active fluticasone furoate (Arnuity Ellipta) 100 MCG/ACT inhaler Inhale 1 puff Once per day. Rinse mouth with water after use to reduce aftertaste and incidence of candidiasis. Do not swallow. 1 each 09/12/192024 Active albuterol 108 (90 Base) MCG/ACT inhalerIndicati ons:Moderate persistent asthma with acute exacerbation Inhale 2 puffs every 4 (four) hours if needed for wheezing. 18 g 2 04/03/19 25 Active Emollient (CeraVe Moisturizing) creamIndication s:Other eczema Apply 1 Units topically 2 times daily. 453 g 1 04/03/19 25 Active clobetasol (Temovate) 0.05 % creamIndication s:Other eczema Apply topically 2 times daily. Mix entire tube into Cerave. Do not apply on face 60 g 1 04/03/19 25 Active acetaminophen (Tylenol) 500 MG tablet Take 2 tablets by mouth in the morning and 2 tablets at noon and 2 tablets in the evening and 2 tablets before bedtime. 07/02/19 19 Active busPIRone (Buspar) 5 MG tablet Take 1 tablet by mouth every 12 (twelve) hours. 03/01/20 21 Active cholecalciferol (Vitamin D-3) 50 MCG (2000 UT) capsule Take 2,000 Units by mouth at bed time. 03/03/20 21 Active EPINEPHrine (Epipen) 0.3 MG/0.3ML injection syringe Inject 0.3 mL into the muscle. 06/17/19 22 Active fluticasone (Flovent HFA) 110 MCG/ACT inhaler Inhale 2 puffs every 12 (twelve) hours. 06/17/19 22 Active levonorgestrel- ethinyl estradiol (Levora 0.15/30, 28,) 0.15-30 MG-MCG tablet take 1 tablet by oral route every day, skip placebo pills and go to new pack 08/15/19 19 Active predniSONE (Deltasone) 20 MG tablet Take 2 tablets by mouth Once per day. 05/07/19 25 Active cetirizine (ZyrTEC) 10 MG tabletIndicatio ns:Other eczema TAKE 1 TABLET BY MOUTH EVERY DAY NEEDED 90 tablet 06/27/19 25 Active cetirizine (ZyrTEC) 10 MG tabletIndicatio ns:Other eczema Take 1 tablet (10 mg) by mouth Once per day. Prn. 30 tablet 2 04/04/19 25 2024 Discontinued Active Problems Problem Noted Date Diagnosed Date Irregular periods 07/23/2024 Pelvic pain 07/23/2024 PTSD (post-traumatic stress disorder) 07/30/2023 History of [...] Encounters Date Type Department Care Team Description 07/23/2024 9:20 AM EDT Office Visit [facility] [address] [place] [address] Irregular periods (Primary Dx); Pelvic pain 07/23/2024 Travel 06/26/2024 Refill [facility] [address] [place] [address] Ayesha Ramachandran NP Other eczema 06/13/2024 Population Health Risk Score Community Care [facility] ([facility]) Department [address] [place] [phone] Provider, Population Health Generic 06/04/2024 Telephone [facility] [address] [place] [address] Armando Chung [place] rescheduled appointment 06/04/2024 Telephone [facility] [address] [place] [address] Ayesha Ramachandran NP Appointment Request 05/29/2024 Telephone [facility] [address] [place] [address] Ayesha Ramachandran NP chartprep 05/28/2024 Patient Outreach [facility] [address] [place] [address] Ayesha Ramachandran NP Pre-visit Planning ([facility] unable to reach [facility] ) 04/25/2024 Orders Only [facility] [address] [place] [address] Provider, MD Pierce from Last 3 Months Immunizations Name Administration [...] 08 Moderna Covid-19 Vaccine 12+ 11/20/2020 Novel [id number], all formulations 03/12/2009 OPV, Trivalent 01/07/1998, 4,04/13/1993,02/09 TD (adult), 2 Lf tetanus [...] Sign Reading Time Taken Comments Blood Pressure 118/75 07/23/2024 9:08 AM EDT Pulse 89 07/23/2024 9:08 AM EDT Temperature 36.7 ??C (98 ??F) 07/23/2024 9:08 AM EDT Respiratory Rate 16 07/23/2024 9:08 AM EDT Oxygen Saturation 98% 07/23/2024 9:08 AM EDT Inhaled Oxygen Concentration - - Weight 72.6 kg (160 lb) 07/23/2024 9:08 AM EDT Height 157.5 cm (5' 2 ) 09/12/2023 3:15 PM EDT Body Mass Index 29.26 09/12/2023 3:15 PM EDT Plan of Treatment Upcoming Encounters Date Type Department Care Team (Late st Contact Info) Description 09/01/2024 10:30 AM EDT Office Visit [facility] [address] [place] [address] Ayesha Ramachandran NP [address] [place], [place] [phone] Health Maintenance Due Date Last Done Comments Alcohol/Substance Use Screening 2004 Family Planning (PISQ) 12/09/2007 Pneumococcal Vaccine: Pediatrics (0 to 5 Years) and At-Risk Patients (6 to 49) Years) (1 of 2 - PCV) 12/09/2011 COVID-19 Vaccine ( - season) 2023 12/21/2020, 11/20/2020 Influenza Vaccine (#1) 2023 , 01/01/2020, 01/25/2011, Additional history exists Depression Screening 07/29/2024 07/30/2023, 07/30/19 24 SDOH Screening 07/29/2024 07/30/2023 Tobacco Screening 04/04/2025 04/04/2024 Cervical Cancer Screening 08/20/2028 HPV/Cotest 08/20/2028 Pap Smear 08/20/2028 08/21/2023 DTaP/Tdap/Td Vaccines (10 - Td or [...] Procedure Name Priority Date/Time Associated Diagnosis Comments XR CHEST 2 VIEWS Routine 05/06/2024 9:39 PM EST HCG, TOTAL, QN Routine 05/06/2024 9:20 PM EST LIPASE Routine 05/06/2024 9:20 PM EST MAGNESIUM Routine 05/06/2024 9:20 PM EST COMPREHENSIVE METABOLIC PANEL Routine 05/06/2024 9:20 PM EST CBC WITH AUTO DIFFERENTIAL Routine 05/06/2024 9:20 PM EST SARS COV2/INFLUENZA A/B AND RSV RNA QL NAAT Routine 05/06/2024 9:20 PM EST STREP A NUCLEIC ACID Routine 05/06/2024 9:20 PM EST HM PAP/HPV Routine 08/21/2023 3:13 PM EDT ZZZ HISTORICAL HEPATITIS C AB W/REFL TO HCV RNA, QN, PCR Routine 03/01/2021 3:26 PM EST HIV 1/2 ANTIGEN/ANTIBODY, FOURTH GENERATION W/RFL Routine 03/01/2021 3:26 PM EST from Last 3 Months or Most Recently Relevant to Health Maintenance Results * XR Chest 2 Views (05/06/2024 9:39 PM EST) Anatomical Region Laterality Modality Chest Radiographic Deloris ging 05/06/2024 9:39 PM EST Narrative 05/06/2024 9:40 PM EST ? [facility] ?[address] ?[place] [address] ?XRay Report ? Signed ? Patient: Colon,Kenya Ellen ?MR#: [id number] ?? [id number] ? : 1990 ?Acct:[id number] ? Age/Sex: 33 / F ?ADM Date: 05/06/24 ? Loc: HO.ED ? Attending Dr: ? Ordering Physician: Debbie Bowie ?? Date of Service: 05/06/24 ?? Procedure(s): XR chest 2V ?? Accession Number(s): [id number] ? cc: Radha Sanchez NP; Debbie Bowie ? CLINICAL HISTORY: cough, fever ? 2 view chest x-ray ? Comparison: Chest x-ray from 07/16/2019 ? Findings: ?? No consolidation or effusion. Borderline low lung volumes. No pneumothorax. ?? Cardiac silhouette and mediastinal contours are within limits of normal. ?? No acute fracture. ? IMPRESSION: ?? No consolidation. ? This document has been electronically signed by: Rios Rodriges MD on ?? 05/06/2024 21:39:44 ? Dictated By: ?Rios Rodriges MD ? Signed By: ?<Electronically signed by Rios Rodriges MD in OV> ? 05/06/242139 ? DD/ 38 ? TD/TT: 05/06/242138 ? Technology Coach: ? Procedure Note Zayda Felix - 05/06/[address] [address] XRay Report Signed Patient: Kenya Saldivar#: [id number] : 1990Acct:[id number] Age/Sex: 33 / FADM Date: 05/06/24 Loc: HO.ED Attending Dr: Ordering Physician: Debbie Bowie Date of Service: 05/06/24 Procedure(s): XR chest 2V Accession Number(s): [id number] cc: Radha Sanchez SOFTWARE DEVELOPMENT ANALYST; Debbie Bowie CLINICAL HISTORY: cough, fever 2 view chest x-ray Comparison: Chest x-ray from 07/16/2019 Findings: No consolidation or effusion. Borderline low lung volumes. Nopneumothorax. Cardiac silhouette and mediastinal contours are within limits of normal. No acute fracture. IMPRESSION: No consolidation. This document has been electronically signed by: Rios Rodriges MD on 05/06/2024 21:39:44 Dictated By: Rios Rodriges MD Signed By: <Electronically signed by Rios Rodriges MD in OV> 05/06/242139 DD/ 38 TD/TT: 05/06/242138 Technology Coach: [facility] External Provider IMG XR PROCEDURES Edited Result - Final * Strep A Nucleic Acid (05/06/2024 9:20 PM EST) IDNOW SERIAL# [id number] [facility] Strep A Nucleic Acid Negative Negative [facility] Comment:All test results mus t be correlated with clinical findings.This test has not been evaluated for monitoring treatment ofinfection.Additional follow-up testing using the culture method isrequired if the result is negative and clinical symptomspersist, or in the event of an acute rheumatic feveroutbreak. 05/06/2024 9:20 PM EST 05/06/2024 9:40 PM EST Generic External Data Provider LAB MICROBIOLOGY - GENERAL ORDERABLES Final Result [facility] [address] [place] [phone] * (ABNORMAL) SARS-CoV-2 RNA, Influenza A/B, and RSV RNA, Ql NAAT (05/06/2024 9:20 PM EST) Influenza A PCR POSITIVE(A) Negative [facility] Influenza B PCR NEGATIVE Negative [facility] Resp Syncy Virus RNA Qual PCR NEGATIVE Negative [facility] SARS COV2 PCR NEGATIVE Negative [facility] Comment:All test results mus t be correlated with clinical findings.Negative results do not preclude SARS-CoV2, influenza Avirus, influenza B virus and/or RSV infectionand should not be used as the sole basis for treatment orother patient management decisions. Negative results must becombined with clinical observations, patient history, andepidemiological information.This test has not been evaluated for monitoring treatment ofinfection.This test has been authorized by the FDA under an EmergencyUse Authorization (EUA) for use by authorized laboratories.Testing performed on the [employer] GeneXpert utilizingreal-time RT-PCR.All SARS CoV2 and positive influenza A/B results arereported to [facility]. 05/06/2024 9:20 PM EST 05/06/2024 9:40 PM EST us Generic External Data Provider LAB MICROBIOLOGY - GENERAL ORDERABLES Final Result [facility] [address] [place] [phone] * (ABNORMAL) CBC auto differential (05/06/2024 9:20 PM EST) [facility] White Blood Count 3.0(L) 4.8 - 10.8 X10*3/uL [facility] Red Blood Count 4.76 4.20 - 5.50 X10*6/uL [facility] Hemoglobin 13.3 12.0 - 16.0 g/dl [facility] Hematocrit 40.1 37.0 - 47.0 % [facility] Mean Corpuscular Volume 84.2 80.0 - 98.0 fL [facility] Mean Corpuscular Hemoglobin 27.9 27.0 - 33.0 pg [facility] Mean Corpuscular HGB Conc 33.2 31.0 - 35.0 g/dl [facility] Red Cell Distribution Width 11.6 11.0 - 16.0 % [facility] Platelet Count 217 160 - 400 X10*3/uL [facility] Mean Platelet Volume 10.4 9.4 - 12.3 fL [facility] Neutrophils Percent Auto 55.2 45 - 73 % [facility] Imm Gran Pct Auto 0.7(H) 0.0 - 0.4 % [facility] Lymphocytes Percent Auto 29.0 20 - 40 % [facility] Monocytes Percent Auto 11.7(H) 2 - 11 % [facility] Eosinophils Percent Auto 2.7 0 - 4 % [facility] Basophils Percent Auto 0.7 0 - 2 % [facility] NRBC Pct Auto 0.0 0.0 - 0.2 /100WBC [facility] Neutrophils Absolute Auto 1.7(L) 2.0 - 8.3 x10*3/uL [facility] Imm Gran Abs Auto 0.02 0.00 - 0.03 X10*3/uL [facility] Lymphocytes Absolute Auto 0.9(L) 1.2 - 4.9 X10*3/uL [facility] Monocytes Absolute Auto 0.4 0.1 - 1.2 X10*3/uL [facility] Eosinophils Absolute Auto 0.1 0.0 - 0.4 X10*3/uL [facility] Basophils Absolute Auto 0.0 0.0 - 0.2 X10*3/uL [facility] NRBC Abs Auto 0.000 0.0 - 0.012 X10*3/uL [facility] 05/06/2024 9:20 PM EST 05/06/2024 9:40 PM EST us Generic External Data Provider LAB BLOOD ORDERAB LES Final Result [facility] [address] [place] [phone] * hCG, Total, Quantitative (05/06/2024 9:20 PM EST) Pathologist [facility] HCG Quantitative <2 mIU/mL [facility] Comment:Weeks post LMP Appro ximate hCG(Last Menstrual Period) Range (mIU/ml)3 - 4 weeks 9 - 1304 - 5 weeks 75 - 2,6005 - 6 weeks 850 - 20,8006 - 7 weeks 4000 - 100,2007 - 12 weeks 11,500 - 289,13935 - 16 weeks 18,300 - 137,54312 - 29 weeks (2nd trimester) 1,400 - 53,63923 - 41 weeks (3rd trimester) 940 - 60,000The Gomez B- hCG assay is used for the early detection ofpregnancy; it cannot be used to diagnose any conditionunrelated to . If a B-hCG level is not supportedby the clinical evidence, results should be confirmed by analternative method (qualitative urine hCG, for example). 05/06/2024 9:20 PM EST 05/06/2024 9:40 PM EST Generic External Data Provider LAB BLOOD ORDERAB LES Final Result Performing Organization Address City/[facility]/ZIP Co de Phone Number [facility] [address] [place] [phone] * Magnesium (05/06/2024 9:20 PM EST) Pathologist [facility] Magnesium 2.1 1.6 - 2.6 mg/dL [facility] 05/06/2024 9:20 PM EST 05/06/2024 9:40 PM EST Generic External Data Provider LAB BLOOD ORDERAB LES Final Result Performing Organization Address [facility] Co de Phone Number [facility] [address] [place] [phone] * Lipase (05/06/2024 9:20 PM EST) Lipase 22 8 - 78 U/L [facility] 05/06/2024 9:20 PM EST 05/06/2024 9:40 PM EST us Generic External Data Provider LAB BLOOD ORDERAB LES Final Result [facility] [address] [place] [phone] * Comprehensive Metabolic Panel (05/06/2024 9:20 PM EST) Sodium 141 135 - 145 mmol/L [facility] Potassium 3.9 3.3 - 5.1 mmol/L [facility] Chloride 101 96 - 108 mmol/L [facility] Carbon Dioxide 26 22 - 29 mmol/L [facility] Anion Gap 18 12 - 20 [facility] Urea Nitrogen (BUN) 9 9 - 16 mg/dL [facility] Creatinine, Serum 0.97 0.5 - 1.4 mg/dL [facility] Creatinine Clr Calc Pharmacy 78.4 [facility] Comment:Provided height and weight: 157.48 cm,72.575 kg.eGFR (calculated from the MDRD study equation) and eCrCl(calculated from the Cockcroft-Gault equation) are based ondifferent parameters and may not yield comparable results.If eCrCl result is absurd, please check patient'sheight/weight. Estimated Glomerular Filt Rate >60 [facility] Comment:Chronic Kidney Disea se: Estimated GFR < 60 mL/min/1.97y0Mycbwk Kidney Disease: Estimated GFR < 15 mL/min/1.73m2 Glucose 93 60 - 115 mg/dL [facility] Calcium 9.0 8.4 - 10.2 mg/dL [facility] Bilirubin, Total 0.2 0.0 - 1.0 mg/dL [facility] Aspartate Amino Transferase 27 5 - 31 U/L [facility] Alanine Aminotransferase 27 0 - 31 U/L [facility] Total Protein 7.7 6.5 - 8.0 g/dL [facility] Albumin Level 4.2 3.5 - 5.0 g/dL [facility] Alkaline Phosphatase 86 39 - 117 U/L [facility] 05/06/2024 9:20 PM EST 05/06/2024 9:40 PM EST Generic External Data Provider LAB BLOOD ORDERAB LES Final Result Performing Organization Address [facility] Co de Phone Number [facility] [address] [place] [phone] * HM PAP/HPV (08/21/2023 3:13 PM EDT) Historical Provider MD HEALTH MAINTENANCE Final Result Performing Organization Address [facility] Co de Phone Number [facility] [address] [place] [address] * HEPATITIS C AB W/REFL TO HCV RNA, QN, PCR (03/01/2021 3:26 PM EST) HEPATITIS C ANTIBODY NON-REACT ERIK NON-REACT ERIK [facility] INDEX 0.03 <1.00 [facility] Comment: ?? HCV antibody was non-reactive. There is no laboratory ?? evidence of HCV infection. ?? In most cases, no further action is required. However, if recent HCV exposure is suspected, a test for HCV RNA (test code 07203) is suggested. ?? For additional information please refer to http://education.Medifocus/faq/CLH47y3 (This link is being provided for informational/ educational purposes only.) ?? 03/01/2021 3:26 PM EST Arti Dewtit FIELD CONTROL INSPECTOR HISTORICAL/NON ORDERABLE LABS Final Result Performing Organization Address [facility] Co de Phone Number [facility] [address] * HIV 1/2 ANTIGEN/ANTIBODY,FOURTH GENERATION W/RFL (03/01/2021 3:26 PM EST) HIV-1/2 ANTIGEN AND ANTIBODIES, 4TH GENERATION W/ REFLEX NON-REACT ERIK NON-REACT ERIK [facility] Comment: HIV-1 antigen and HIV-1/HIV-2 [...] ? For additional information please refer to http://education.Medifocus/faq/JFV995 (This link is being provided for informational/ educational purposes only.) ? The performance of this assay has not been clinically validated in patients less than 2 years old. ?? 03/01/2021 3:26 PM EST us Arti Dewitt FIELD CONTROL INSPECTOR LAB BLOOD ORDERABLES Final Res ult [facility] [address] from Last 3 Months or Most Recently Relevant to Health Maintenance Insurance [place] [address] C3 HSN FULL Care Teams Wildlife And Game Protector Relationship Specialty Start Date End Date Ayesha Ramachandran NP [address] [place] [phone] PCP - General Family Medicine 12/04/23
--- OUTSIDE RECORDS SUMMARY | 2024-07-23 11:03 | XMS_ITS | Encounter Summary ---
Author Organization [employer] Address [address] [place] [address] 7[address] [place] [address] Care Team Providers Care Fraternity House Cook Name Role Phone Ayesha Ramachandran SHAUN Primary Care Provider [phone] Encounter Details Date Type Department Care Team (Late st Contact Info) Description 04/25/2024 Orders Only [facility] MED[facility] [address] [place] [address] ProviderPierce MD Social History Tobacco Use Types [...] Description 09/01/2024 10:30 AM EDT Office Visit [facility] [address] [place] [address] Ayesha Ramachandran NP [address] [place], [place] [phone] documented as of this encounter Procedures Procedure Name Priority Date/Time Associated Diagnosis Comments XR CHEST 2 VIEWS Routine 05/06/2024 9:39 PM EST STREP A NUCLEIC ACID Routine 05/06/2024 9:20 PM EST SARS COV2/INFLUENZA A/B AND RSV RNA QL NAAT Routine 05/06/2024 9:20 PM EST CBC WITH AUTO DIFFERENTIAL Routine 05/06/2024 9:20 PM EST HCG, TOTAL, QN Routine 05/06/2024 9:20 PM EST MAGNESIUM Routine 05/06/2024 9:20 PM EST LIPASE Routine 05/06/2024 9:20 PM EST COMPREHENSIVE METABOLIC PANEL Routine 05/06/2024 9:20 PM EST HM PAP/HPV Routine 08/21/2023 3:13 PM EDT documented in this encounter Results * XR Chest 2 Views (05/06/2024 9:39 PM EST) Anatomical Region Laterality Modality Chest Radiographic Deloris ging 05/06/2024 9:3 9 PM EST Narrative 05/06/2024 9:40 PM EST ? [facility] ?[address] ?[place], [place] [address] ?XRay Report ? Signed ? Patient: Colon,Kenya Ellen ?MR#: [id number] ?? [id number] ? : 1990 ?Acct:[id number] ? Age/Sex: 33 / F ?ADM Date: 05/06/24 ? Loc: HO.ED ? Attending Dr: ? Ordering Physician: Debbie Bowie ?? Date of Service: 05/06/24 ?? Procedure(s): XR chest 2V ?? Accession Number(s): [id number] ? cc: Radha Sanchez NP; Debbie Bowie [...] ? DD/ 38 ? TD/TT: 05/06/242138 ? Formula Checker: ? Procedure Note Zayda Felix - 05/06/[address] [address] XRay Report Signed Patient: Kenya Saldivar#: [id number] : 1990Acct:[id number] Age/Sex: 33 FADM Date: 05/06/24 Loc: HO.ED Attending Dr: Ordering Physician: Debbie Bowie Date of Service: 05/06/24 Procedure(s): XR chest 2V Accession Number(s): [id number] cc: Radha Sanchez TERRY CLOTH CUTTER HAND; Debbie Bowie CLINICAL HISTORY: cough, fever 2 [...] in OV> 05/06/242139 DD/ 38 TD/TT: 05/06/242138 Formula Checker: [facility] External Provider IMG XR PROCEDURES Edited Result - Final * (ABNORMAL) SARS-CoV-2 RNA, Influenza A/B, and RSV RNA, Ql NAAT (05/06/2024 9:20 PM EST) Influenza A PCR POSITIVE(A) Negative [facility] Influenza B PCR NEGATIVE Negative [facility] Resp Syncy Virus RNA Qual PCR NEGATIVE Negative [facility] SARS COV2 PCR NEGATIVE Negative [facility] Comment:All test results mus t be [...] use by authorized laboratories.Testing performed on the Dovo GeneXpert utilizingreal-time RT-PCR.All SARS CoV2 and positive influenza A/B results arereported to [facility]. 05/06/2024 9:20 PM EST 05/06/2024 9:40 PM EST Generic External Data Provider LAB MICROBIOLOGY - GENERAL ORDERABLES Final Result [facility] [address] [place] [address] [phone] * hCG, Total, Quantitative (05/06/2024 9:20 PM EST) Pathologist [facility] HCG Quantitative <2 mIU/mL [facility] Comment:Weeks post LMP Appro ximate hCG(Last Menstrual Period) Range (mIU/ml)3 - 4 weeks 9 - 1304 - 5 weeks 75 - 2,6005 - 6 weeks 850 - 20,8006 - 7 weeks 4000 - 100,2007 - 12 weeks 11,500 - 289,16188 - 16 weeks 18,300 - 137,06904 - 29 weeks (2nd trimester) 1,400 - 53,07327 - 41 weeks (3rd trimester) 940 - [...] ORDERAB LES Final Result Performing Organization Address [facility] Co de Phone Number [facility] [address] [place] [phone] * Lipase (05/06/2024 9:20 PM EST) [facility] Lipase 22 8 - 78 U/L [facility] 05/06/2024 9:20 PM EST 05/06/2024 9:40 PM EST us Generic External Data Provider LAB BLOOD ORDERAB LES Final Result Performing Organization Address [facility] Co de Phone Number [facility] [address] [place] [phone] * Magnesium (05/06/2024 9:20 PM EST) Magnesium 2.1 1.6 - 2.6 mg/dL [facility] 05/06/2024 9:20 PM EST 05/06/2024 9:40 PM EST us Generic External Data Provider LAB BLOOD ORDERAB LES Final Result [facility] [address] [place] [address] [phone] * Comprehensive Metabolic Panel (05/06/2024 9:20 PM EST) Sodium 141 135 - 145 mmol/L [facility] Potassium 3.9 3.3 - 5.1 mmol/L [facility] Chloride 101 96 - 108 mmol/L [facility] Carbon Dioxide 26 22 - 29 mmol/L [facility] Anion Gap 18 12 - 20 [facility] Urea Nitrogen (BUN) 9 9 - 16 mg/dL [facility] Creatinine, Serum 0.97 0.5 - 1.4 mg/dL [facility] Creatinine Clr Calc Pharmacy 78.4 [facility] Comment:Provided height and weight: 157.48 cm,72.575 kg.eGFR (calculated from the MDRD study equation) and eCrCl(calculated from the Cockcroft-Gault equation) are based ondifferent parameters and may not yield comparable results.If eCrCl result is absurd, please check patient'sheight/weight. Estimated Glomerular Filt Rate >60 [facility] Comment:Chronic Kidney Disea se: Estimated GFR < 60 mL/min/1.37m9Ttmfau Kidney Disease: Estimated GFR < 15 mL/min/1.73m2 Glucose 93 60 - 115 mg/dL [facility] Calcium 9.0 8.4 - 10.2 mg/dL [facility] Bilirubin, Total 0.2 0.0 - 1.0 mg/dL [facility] Aspartate Amino Transferase 27 5 - 31 U/L [facility] Alanine Aminotransferase 27 0 - 31 U/L [facility] Total Protein 7.7 6.5 - 8.0 g/dL [facility] Albumin Level 4.2 3.5 - 5.0 g/dL [facility] Alkaline Phosphatase 86 39 - 117 U/L [facility] 05/06/2024 9:20 PM EST 05/06/2024 9:40 PM EST Generic External Data Provider LAB BLOOD ORDERAB LES Final Result Performing Organization Address [facility] de Phone Number [facility] [address] [place] [address] [phone] * Strep A Nucleic Acid (05/06/2024 9:20 PM EST) IDNOW SERIAL# [id number] [facility] Strep A Nucleic Acid Negative Negative [facility] Comment:All test results mus t [...] LAB MICROBIOLOGY - GENERAL ORDERABLES Final Result Performing Organization Address [facility] de Phone Number [facility] [address] [place] [phone] * (ABNORMAL) CBC auto differential (05/06/2024 9:20 PM EST) White Blood Count 3.0(L) 4.8 - 10.8 X10*3/uL [facility] Red Blood Count 4.76 4.20 - 5.50 X10*6/uL [facility] Hemoglobin 13.3 12.0 - 16.0 g/dl [facility] Hematocrit 40.1 37.0 - 47.0 % [facility] Mean Corpuscular Volume 84.2 80.0 - 98.0 fL [facility] Mean Corpuscular Hemoglobin 27.9 27.0 - 33.0 pg [facility] Mean Corpuscular HGB Conc 33.2 31.0 - 35.0 g/dl [facility] Red Cell Distribution Width 11.6 11.0 - 16.0 % [facility] Platelet Count 217 160 - 400 X10*3/uL [facility] Mean Platelet Volume 10.4 9.4 - 12.3 fL [facility] Neutrophils Percent Auto 55.2 45 - 73 % [facility] Imm Gran Pct Auto 0.7(H) 0.0 - 0.4 % [facility] Lymphocytes Percent Auto 29.0 20 - 40 % [facility] Monocytes Percent Auto 11.7(H) 2 - 11 % [facility] Eosinophils Percent Auto 2.7 0 - 4 % [facility] Basophils Percent Auto 0.7 0 - 2 % [facility] NRBC Pct Auto 0.0 0.0 - 0.2 /100WBC [facility] Neutrophils Absolute Auto 1.7(L) 2.0 - 8.3 x10*3/uL [facility] Imm Gran Abs Auto 0.02 0.00 - 0.03 X10*3/uL [facility] Lymphocytes Absolute Auto 0.9(L) 1.2 - 4.9 X10*3/uL [facility] Monocytes Absolute Auto 0.4 0.1 - 1.2 X10*3/uL [facility] Eosinophils Absolute Auto 0.1 0.0 - 0.4 X10*3/uL [facility] Basophils Absolute Auto 0.0 0.0 - 0.2 X10*3/uL [facility] NRBC Abs Auto 0.000 0.0 - 0.012 X10*3/uL [facility] 05/06/2024 9:20 PM EST 05/06/2024 9:40 PM EST us Generic External Data Provider LAB BLOOD ORDERAB LES Final Result Performing Organization Address City/State/[facility] Co de Phone Number [facility] [address] [place] [address] [phone] * HM PAP/HPV (08/21/2023 3:13 PM EDT) us Historical Provider HEALTH MAINTENANCE Final Result [facility] [address] [place] [address] documented in this encounter Visit Diagnoses Not on filedocumented in this encounter Additional Health Concerns Assessment Noted Time PHQ-9 Depression Total Score: 7 07/30/19 24 11:56 AM EDT documented as of this encounter Care Teams Fraternity House Cook Relationship Specialty Start Date End Date Ayesha Ramachandran NP [address] [place] [phone] PCP - General Family Medicine 12/04/23 documented as of this encounter
--- OUTSIDE RECORDS SUMMARY | 2024-07-23 11:03 | XMS_ITS | Encounter Summary ---
Author Organization [employer] Address [address] [place] [address] Care Team Providers Care Supervisor [employer] Former Name Role Phone Ayesha Ramachandran SHAUN Primary Care Provider [phone] Reason for Referral * Consultation (Routine) - Pending Review Specialty Diagnoses / Procedures Referred By Contac t Referred To Contact Obstetrics and Gynecology Diagnoses Irregular periods Pelvic pain Alicia Quiles MD [address] [place] [phone] Phone: tel: fax: Referral ID Status Reason Start Date Expiration Date Visits Requested Visits Authorized [id number] Pending Review Specialty Services Required 07/23/2024 07/23/2025 1 1 * Imaging (Routine) - Authorized Specialty Diagnoses / Procedures Referred By Contac t Referred To Contact Radiology Diagnoses Irregular periods Pelvic pain Procedures US Pelvis Transvaginal Alicia Quiles MD [address] [place] [address] Phone: tel: fax: [address] Phone: tel: fax: Referral ID Status Reason Start Date Expiration Date V isits Requested Visits Authorized [id number] Authorized 07/23/2024 07/23/2025 1 1 * Imaging (Routine) - Authorized Specialty Diagnoses / Procedures Referred By Contac t Referred To Contact Radiology Diagnoses Irregular periods Pelvic pain Procedures Us Pelvis complete Alicia Quiles MD [address] [place] [address] Phone: tel: fax: [facility] [address] [place] [address] Phone: tel: fax: Referral ID Status Reason Start Date Expiration Date V isits Requested Visits Authorized [id number] Authorized 07/23/2024 07/23/2025 1 1 Reason for Visit * Reason Comments Abdominal Pain Encounter Details Date Type Department Care Team ([facility] st Contact Info) Description 07/23/2024 9:20 AM EDT Office Visit [facility] [address] [place] [address] Irregular periods (Primary Dx); Pelvic pain Social History Tobacco Use Types Packs/Day Years [...] AM EDT documented as of this encounter Last Filed Vital Signs Vital Sign Reading Time Taken Comments Blood Pressure 118/75 07/23/2024 9:08 AM EDT Pulse 89 07/23/2024 9:08 AM EDT Temperature 36.7 ??C (98 ??F) 07/23/2024 9:08 AM EDT Respiratory Rate 16 07/23/2024 9:08 AM EDT Oxygen Saturation 98% 07/23/2024 9:08 AM EDT Inhaled Oxygen Concentration - - Weight 72.6 kg (160 lb) 07/23/2024 9:08 AM EDT Height - - Body Mass Index 29.26 09/12/2023 3:15 PM EDT documented in this encounter Plan of Treatment Upcoming Encounters Date Type Department Care Team (Late st Contact Info) Description 09/01/2024 10:30 AM EDT Office Visit [facility] MEDICINE [address] [place] [address] Ayesha Ramachandran NP [address] [place] [address] Scheduled Orders Name Type Priority Associated Diagnoses Orde r Schedule [facility] Lab Routine Irregular periods Expected: 07/23/2024, Expires: 07/23/2025 LH Lab Routine Irregular periods Expected: 07/23/2024 (Approximate), Expires: 07/23/2025 TSH W/Reflex to FT4 Lab Routine Irregular periods Expected: 07/23/2024 (Approximate), Expires: 07/23/2025 Hemoglobin A1c Lab Routine Irregular periods Expected: 07/23/2024 (Approximate), Expires: 07/23/2025 Insulin Lab Routine Irregular periods Expected: 07/23/2024 (Approximate), Expires: 07/23/2025 Us Pelvis complete Imaging Routine Irregular periods Pelvic pain Expected: 07/23/2024, Expires: 07/23/2025 US Pelvis Transvaginal Imaging Routine Irregular periods Pelvic pain Expected: 07/23/2024, Expires: 07/23/2025 Scheduled Referrals Name Type Priority Associated Diagnoses Order Schedule Referral to Obstetrics / Gynecology Outpatient Referral Routine Irregular periods Pelvic pain Expected: 07/23/2024 (Approximate), Expires: 07/23/2025 documented as of this encounter Visit Diagnoses Diagnosis Irregular periods- Primary Pelvic pain documented in this encounter Additional Health Concerns Assessment Noted Time PHQ-9 Depression Total Score: 7 07/30/19 11:56 AM EDT documented as of this encounter Care Teams Supervisor [employer] Former Relationship Specialty Start Date End Date Ayesha Ramachandran NP [address] [place] [phone] PCP - General Family Medicine 12/04/23 documented as of this encounter
--- OUTSIDE RECORDS SUMMARY | 2024-07-23 11:04 | XMS_ITS | Encounter Summary ---
Author Organization [employer] Address [address] [place] [address] [address] [place] [address] Care Team Providers Care Ssis Ssrs Developer Name Role Phone Radha SanchezP Primary Care Provider [phone] Ayesha Ramachandran NP Primary Care Provider [phone] Encounter Details Date Type Department Care Team ([facility] st Contact Info) Description 12/14/2022 Telephone [facility] MEDICINE [address] [place], [place] [phone] Radha Sanchez FNP [address] [place] [address] Social History Tobacco Use Types Packs/Day Years [...] No answer. LVM to call back on [phone]. * Telephone Encounter - Almita Mcgowan - 12/14/2022 8:43 AM EDT Tc from pt requesting to get a sleep studies done . documented in this encounter Plan of Treatment Upcoming Encounters Date Type Department Care Team (Late st Contact Info) Description 09/01/2024 10:30 AM EDT Office Visit [facility]INE [address] [place] [address] Ayesha Ramachandran NP [address] [place], [place] [phone] documented as of this encounter Visit Diagnoses Not on filedocumented in this encounter Care Teams Ssis Ssrs Developer Relationship Specialty Start Date End Date Radha Sanchez FNP [address] [place], [place] [phone] PCP - General Family Medicine 12/08/22 12/03/23 Ayesha Ramachandran NP [address] [place], [place] [phone] PCP - General Family Medicine 12/04/23 documented as of this encounter
--- OUTSIDE RECORDS SUMMARY | 2024-07-23 11:04 | XMS_ITS | Encounter Summary ---
Author Organization [employer] Address [address] [place] [address] Care Team Providers Care Assembly Hand Name Role Phone Radha Sanchez Primary Care Provider [phone] Ayesha Ramachandran NP Primary Care Provider [phone] Encounter Details Date Type Department Care Team (Late st Contact Info) Description 04/10/2023 Orders Only [facility] [address] [place] [address] Radha Sanchez FNP [address] [place] [address] Irregular menses (Primary Dx) Social History Tobacco [...] Description 09/01/2024 10:30 AM EDT Office Visit [facility] [address] [place] [address] Ayesha Ramachandran NP [address] [place] [address] documented as of this encounter Visit Diagnoses Diagnosis Irregular menses- Primary Irregular menstrual cycle documented in this encounter Care Teams Assembly Hand Relationship Specialty Start Date End Date Radha Sanchez FNP [address] [place] [address] PCP - General Family Medicine 12/08/22 12/03/23 Ayesha Ramachandran NP [address] [place] [address] PCP - General Family Medicine 12/04/23 documented as of this encounter
[2024-07-23 11:53] LABS: Estimated Average Glucose 105 mg/dL; Hemoglobin A1C 117.7231 umol/L; Hemoglobin A1c % 5.3 % (<6.0); Total Hemoglobin (HGBA1C) 3458.5728 umol/L
[2024-07-23 12:24] LABS: Insulin 8 uU/mL (2-29); TSH reflex Free T4 5.04 uIU/mL (0.32-4.0)
[2024-07-23 12:56] LABS: Free T4 (Free Thyroxine) 0.94 ng/dL (0.71-1.85)
[2024-07-24 07:58] LABS: Follicle Stimulating Hormone 7.3 mIU/mL; Lutenizing Hormone 3.8 mIU/mL
== END 2024-07-23 09:49 | disposition home or self-care (01) ==
LOC: HO.HHCL 09:48
PROVIDERS: Visit Provider Internal Medicine
DX: N92.6 Irregular menstruation, unspecified (principal); R10.2 Pelvic and perineal pain
CPT/HCPCS: 36415; 83001; 83002; 83036; 83525; 84439; 84443

== ENCOUNTER 2024-09-03 11:46 | Outpatient (REF) | payer MEDICAID, SELFPAY ==
[2024-09-03 13:20] LABS: MANUAL DIFF FLAG NO
[2024-09-03 13:25] LABS: Basophils Absolute Auto 0.1 X10*3/uL (0.0-0.2); Eosinophils Absolute Auto 0.9 X10*3/uL (0.0-0.4); Eosinophils Percent Auto 12.6 % (0-4); Hematocrit 38.8 % (37.0-47.0); Hemoglobin 12.6 g/dl (12.0-16.0); Imm Gran Abs Auto 0.01 X10*3/uL (0.00-0.03); Imm Gran Pct Auto 0.1 % (0.0-0.4); Lymphocytes Absolute Auto 2.6 X10*3/uL (1.2-4.9); Lymphocytes Percent Auto 38.2 % (20-40); Mean Corpuscular HGB Conc 32.5 g/dl (31.0-35.0); Mean Corpuscular Hemoglobin 27.8 pg (27.0-33.0); Mean Corpuscular Volume 85.5 fL (80.0-98.0); Mean Platelet Volume 11.3 fL (9.4-12.3); Monocytes Absolute Auto 0.7 X10*3/uL (0.1-1.2); Monocytes Percent Auto 9.5 % (2-11); Neutrophils Absolute Auto 2.6 x10*3/uL (2.0-8.3); Neutrophils Percent Auto 38.6 % (45-73); Platelet Count 246 X10*3/uL (160-400); Red Blood Count 4.54 X10*6/uL (4.20-5.50); Red Cell Distribution Width 11.7 % (11.0-16.0); White Blood Count 6.8 X10*3/uL (4.8-10.8)
[2024-09-03 13:46] LABS: Anion Gap 12 (12-20); Blood Urea Nitrogen 16 mg/dL (9-16); Carbon Dioxide 27 mmol/L (22-29); Chloride 104 mmol/L (96-108); Cholesterol 130 mg/dL (<200); Estimated Glomerular Filt Rate > 60; Glucose Random 88 mg/dL (60-115); HDL Cholesterol 52 mg/dL (>40); LDL Cholesterol Calculated 65 mg/dL (<100); Potassium 3.7 mmol/L (3.3-5.1); Sodium 139 mmol/L (135-145); Triglycerides 68 mg/dL (<150)
[2024-09-03 13:58] LABS: Vitamin D 25-OH Total 23.1 ng/mL (>30)
== END 2024-09-03 11:47 | disposition home or self-care (01) ==
LOC: HO.HHCL 11:46
PROVIDERS: Visit Provider Nurse Practitioner
DX: Z13.9 Encounter for screening, unspecified (principal); Z86.39 Personal history of other endocrine, nutritional and metabolic disease
CPT/HCPCS: 36415; 80048; 80061; 82306; 85025

== ENCOUNTER 2024-09-04 13:59 | Outpatient (REF) | payer MEDICAID, SELFPAY ==
--- NOTE | ~2024-09-04 | US_ITS ---
EXAMINATION: US PELVIS TRANSABDOMINAL AND TRANSVAGINAL HISTORY: dysmenorrhea, irregular periods, pelvic pain COMPARISON: There are no prior studies available for comparison. TECHNIQUE: Transabdominal and endovaginal real-time 2D rocha-scale ultrasound was performed. FINDINGS: Uterus: The uterus is normal in size, measuring 9.1 x 3.7 x 5.5 cm. Myometrium has a normal echotexture. There is a posterior fibroid measuring 7 x 5 x 9 mm. Endometrium: The endometrial stripe measures 14 mm in thickness. There are nabothian cysts in the cervix. Right ovary: The right ovary measures 3.4 x 1.7 x 2.2 cm. The right ovary is normal in size and echotexture. A 2.1 x 1.9 x 1.9 cm hypoechoic structure likely represents a corpus luteum. Left ovary: The left ovary measures 2.8 x 1.6 x 1.9 cm. The left ovary is normal in size and echotexture. Pelvic fluid: none. US/US pelvic and transvaginal IMPRESSION: 9 mm posterior uterine fibroid. Otherwise unremarkable pelvic ultrasound. Electronically signed by: Jayson Mahajan MD 09/05/2024 07:01 AM EDT
== END 2024-09-04 14:00 | disposition home or self-care (01) ==
LOC: HO.US 13:59
PROVIDERS: Visit Provider Internal Medicine
DX: N92.6 Irregular menstruation, unspecified (principal); R10.2 Pelvic and perineal pain
CPT/HCPCS: 76830; 76856

== ENCOUNTER → 2024-09-04 14:01 | Outpatient (BNV) | payer MEDICAID, SELFPAY | PROVIDERS: Visit Provider Radiology Diagnostic Radiology | DX: D25.9 Leiomyoma of uterus, unspecified (principal) | CPT/HCPCS: 76830; 76856 ==